=== PATIENT | male | born 1945 | race Hispanic/Latino ===

== ENCOUNTER 2019-05-21 13:47 | Outpatient (CLI) | payer MEDICARE, SELFPAY ==
--- NOTE | ~2019-05-21 | XR_ITS ---
EXAMINATION: XR chest 2V 05/21/2019 14:23 INDICATION: Cough and shortness of breath PROCEDURE: 2 View chest COMPARISON: No prior studies for comparison. FINDINGS: The lungs are clear. The cardiomediastinal silhouette is within normal limits. There are no pleural effusions. There is no pneumothorax suspected. IMPRESSION: 1: NO ACUTE CARDIOPULMONARY DISEASE. Reviewed, dictated and finalized at location B. E PROCESSOR
== END 2019-05-21 13:48 | disposition home or self-care (01) ==
LOC: ANHIMG 13:53
PROVIDERS: PCP Family Medicine; Visit Provider Family Medicine
DX: R05 Cough (principal)
CPT/HCPCS: 71046

== ENCOUNTER 2021-07-13 01:07 | Day surgery (SDC) | payer MEDICARE, SELFPAY ==
[2021-07-05 12:51] VITALS: BMI 30.2
[2021-07-13 09:05] LABS: Glucose Point of Care 161 mg/dl (65-105)
[2021-07-13 09:07] VITALS: BP 154/66; PULSE 76; RESP 18; TEMP 36.5; O2SAT 98
[2021-07-13] MEDS: LACTATED RINGERS 1,000 ML 150 ML IV CONT (09:10)
--- NOTE | 2021-07-13 09:30 | SUR.PREOP ---
Pt speaks very limited Romansh; knik language is Lao. Pt is unsure as to what home medications he takes. Pt's grandson, Adonis, reports pt takes something for blood pressure and cholesterol and medicine for diabetes , but is unsure exactly which medications. Neither pt or grandson has a list of pt's home medications/dosages/frequencies. Dr. Cook aware.
--- NOTE | 2021-07-13 09:48 | P.PNAN_ITS ---
Anes - Initial Pre Proc Eval Procedure: Operation Date: 07/13/21 10:00 Proposed Procedures p Screening Colonoscopy - Kayden Sequeira MD Date/Time: 07/13/21 09:48 Surgeon: Kayden Sequeira MD Pre Op Diagnosis: neoplasm screening Patient Data Age: 75 Gender: M Height: 1.63 m Weight: 78.4 kg Last Vital Signs Temp 97.7 F 07/13/21 09:07 Pulse 76 07/13/21 09:07 Resp 18 07/13/21 09:07 BP 154/66 H 07/13/21 09:07 Pulse Ox 98 07/13/21 09:07 Allergies Allergy/AdvReac Type Severity Reaction Status Date / Time No Known Allergies Allergy Verified 07/13/21 09:06 Laboratory Tests 07/13/21 09:02 POC Capillary Glucose 161 mg/dl H mg/dl (65-105) Patient hx anesthesia problems: none Family hx anesthesia problems: none Results Review: All pre-operative results and documents have been reviewed as part of the pre-operative evaluation. [facility] Social History Social History Smoking status: Former smoker Tobacco type: cigarettes Alcohol intake: current Alcohol use details: ocasionally Substance use: never Substance use type: does not use Living arrangements: with family Spiritual care concerns: No Anes - Eval Final PreProcedure Day of Procedure 07/13/21 09:48 Patient weight: obese Heart: regular rate and rhythm Lungs: clear to auscultation Airway: Mallampati scale class II Neurological: alert and oriented Last oral intake: >/= 8 hours ASA classification: III Emergent: no Anesthetic plan: proceed Anesthesia type and monitoring: general GIVS and standard monitoring Results Review: All pre-operative results and documents have been reviewed as part of the pre-operative evaluation. Informed Consent: The patient's anesthetic plan and its attendant risks and benefits were discussed with the patient/family/POA. Questions were solicited and answers provided to the satisfaction of the patient/family/POA.
--- NOTE | 2021-07-13 09:55 | PM.HPGS ---
History of Present Illness History of Present Illness Consent: Risks, benefits, and alternatives have been discussed and questions answered. Patient agrees to proceed with procedure. Chief complaint: neoplasm screening Narrative: Damien Ruff is a 75 year old male here for first screening colonoscopy Review of Systems Constitutional: Constitutional: Denies headache(s) and Denies weakness Eyes: Eyes: Denies blurry vision ENT: Reports Normal hearing present, Denies headache(s) and Denies neck pain Cardiovascular: Cardiovascular: Denies chest pain and Denies dyspnea Respiratory: Respiratory: Denies dyspnea Gastrointestinal: Gastrointestinal: Reports no additional gastrointestinal complaints Genitourinary: Genitourinary: Denies dysuria Musculoskeletal: Musculoskeletal: Denies neck pain Integumentary/Breasts: Skin/Breast: Denies dry skin Neurologic: Reports Normal hearing present, Denies headache(s) and Denies weakness Psychiatric: Psychiatric: Denies anxiety Endocrine: Endocrine: Denies change in body appearance Hematologic/Lymphatic: Hematologic/Lymphatic: Denies easy bleeding Allergic/Immunologic: Allergic/Immunologic: Denies urticaria PMFSH Past Medical History Medical History (Updated 07/13/21 @ 09:55 by Kayden Sequeira MD) Colon cancer screening Social History Social History Smoking status: Former smoker Tobacco type: cigarettes Alcohol intake: current Alcohol use details: ocasionally Substance use: never Substance use type: does not use Living arrangements: with family Spiritual care concerns: No Meds Home Medications and Allergies Allergies Allergy/AdvReac Type Severity Reaction Status Date / Time No Known Allergies Allergy Verified 07/13/21 09:06 Vital Signs Vital Signs - 24 hr 07/13/21 09:07 Temperature 97.7 F Pulse Rate 76 Respiratory Rate 18 Blood Pressure 154/66 H Pulse Oximetry 98 Exam Const: General: comfortable and no acute distress HENMT: General nose exam: Normal nares present Eyes: General: appearance normal, both eyes and all related structures Neck: Neck: no JVD Resp: Auscultation: clear to auscultation bilaterally Cardio: Rate: regular rate Rhythm: regular rhythm GI: Inspection: non-distended GI Palp: Yes Soft to palpation Skin: General skin exam: normal color Neuro: General: gait normal Speech: normal speech Extrem: General: normal to inspection Psych: Mental Status: mental status grossly normal Assessment and Plan Assessment and plan (1) Colon cancer screening: Code(s): Z12.11 - Encounter for screening for malignant neoplasm of colon Status: Acute Assessment and Plan: colonoscopy
[2021-07-13 10:30] VITALS: BP 105/62; PULSE 63; RESP 14; O2SAT 97
[2021-07-13 10:40] VITALS: BP 110/71; PULSE 61; RESP 12; O2SAT 97
[2021-07-13 10:50] VITALS: BP 123/74; PULSE 68; RESP 16; O2SAT 97
== END 2021-07-13 11:05 | disposition home or self-care (01) ==
PROVIDERS: PCP Family Medicine; Visit Provider Internal Medicine Gastroenterology
PROC: 0DJD8ZZ Inspection of Lower Intestinal Tract, Via Natural or Artificial Opening Endoscopic (ICD-10-PCS; CPT 45378; principal; 2021-07-13 10:00)
DX: Z12.11 Encounter for screening for malignant neoplasm of colon (principal); D12.0 Benign neoplasm of cecum; K64.8 Other hemorrhoids; Z87.891 Personal history of nicotine dependence; E66.9 Obesity, unspecified; Z68.29 Body mass index [BMI] 29.0-29.9, adult
CPT/HCPCS: 45385; 82948; 88305; J2704; J7120

== ENCOUNTER 2023-09-01 16:01 | Outpatient (CLI) | payer MEDICARE, SELFPAY ==
--- NOTE | ~2023-09-01 | XR_ITS ---
XR chest 2V Ordering provider: Donal Tong, FLEXIBLE MACHINING SYSTEM MACHINIST History: 77 years Male with . COUGH X 1 MONTH . Comparison: None. FINDINGS: MEDIASTINUM: The cardiac silhouette is not enlarged. Vague opacity in the left perihilar area. Three-month Follow-up advised LUNGS: No infiltrates, effusions or pneumothorax. Prominent markings in the left lower lobe area. Possible pleural thickening in the right lower lobe area which is slightly increased compared to pre vious study. Follow-up advised. OTHER: No free air under the diaphragm. IMPRESSION: Prominent markings in the left lower lobe unchanged. Vague opacity in the left perihilar area which may be atelectasis. Follow-up in 3 months advised. Possible thickening in the pleura in the right lower lobe area laterally. Follow-up advised. Reviewed, dictated and finalized at location A. IMPRESSION: Prominent markings in the left lower lobe unchanged. Vague opacity in the left perihilar area which may be atelectasis. Follow-up in 3 months advised. Possible thickening in the pleura in the right lower lobe area laterally. Follo w-up advised.
== END 2023-09-01 16:02 | disposition home or self-care (01) ==
LOC: ANHIMG 16:07
PROVIDERS: PCP Nurse Practitioner Family; Visit Provider Nurse Practitioner Family
DX: J98.4 Other disorders of lung (principal)
CPT/HCPCS: 71046

== ENCOUNTER 2024-01-30 14:21 | Outpatient (CLI) | payer MEDICARE, SELFPAY ==
--- NOTE | 2024-01-30 | ECG_ITS ---
Test Date: 2024-01-30 14:51:57 Measurements Intervals [place] Rate: 92 P: 63 DE: 186 QRS: 73 QRSD: 99 T: 28 QT: 331 QTc: 411 Interpretive Statements SINUS RHYTHM ST ELEVATION IN ANTERIOR LEADS- PROBABLY EARLY REPOLARIZATION INFERIOR INFARCT, AGE INDETERMINATE ABNORMAL ECG No previous ECG available for comparison Electronically Signed On 01-30-2024 14:53:32 COATING LINE WORKER by Davin Beaver D.O.
== END 2024-01-30 14:22 | disposition home or self-care (01) ==
LOC: ANHCARD 14:22
PROVIDERS: PCP Physician Assistant; Visit Provider Physician Assistant
DX: R94.31 Abnormal electrocardiogram [ECG] [EKG] (principal); R42 Dizziness and giddiness
CPT/HCPCS: 93005

== ENCOUNTER 2024-02-22 09:31 | Outpatient (CLI) | payer MEDICARE, SELFPAY ==
--- NOTE | ~2024-02-22 | US_ITS ---
EXAMINATION: US carotid duplex BI DATE: 02/22/2024 10:41 INDICATION: Dizziness and giddiness TECHNIQUE: Grayscale, color Doppler, and pulsed Doppler images of the cervical carotid arteries were obtained. The degree of vessel stenosis is placed in one of the following categories: normal, <50%, 5 0-69%, >=70% but less than near-occlusion, near-occlusion, or total occlusion. Note that percent sten osis relative to normal distal artery lumen diameter is indirectly measured from velocity measurement s as described by Chinedu, et al. Radiology 2003; 229:340-346. Notes: Normal: Peak systolic velocity <125 centimeters/sec and no plaque <50%. Peak systolic velocity <125 ( EDV <40; ICA/CCA PSV ratio <2.0; used these factors only a tandem lesions or low cardiac output or co ntralateral disease) 50-69 %: PSV 125-230 (EDV 40-100; ratio 2-4) >= 70% but less than near occlusion: PSV greater than 230 (EDV > 100; ratio> 4.0) Near Occlusion: PSV that is variable; markedly narrowed lumen Occlusion: Absent flow on color/spectral Doppler and no lumen on snowden scale. COMPARISON: None. FINDINGS: RIGHT: The right common carotid artery (CCA) peak systolic velocity (PSV) is 93 cm/s. The right internal car otid artery (ICA) PSV is 126 cm/s. The right ICA end-diastolic velocity (EDV) is 42 cm/s. The right I CA/CCA PSV ratio is 1.4. The external carotid artery (ECA) PSV is 86 cm/s. There is antegrade flow in the right vertebral artery. LEFT: The left CCA PSV is 97 cm/s. The left ICA PSV is 89 cm/s. The left ICA EDV is 25 cm/s. The left ICA/C CA PSV ratio is 0.9. The ECA PSV is 88 cm/s. There is antegrade flow in the left vertebral artery. IMPRESSION: 1. 50-69% stenosis in the right internal carotid artery by sonographic criteria. 2. Less than 50% stenosis in the left internal carotid artery by sonographic criteria. Reviewed, dictated and finalized at location B. UMER SAFETY INSPECTOR IMPRESSION: 1. 50-69% stenosis in the right internal carotid artery by sonographic criteria . 2. Less than 50% stenosis in the left internal carotid artery by sonographic cr iteria.
== END 2024-02-22 09:32 | disposition home or self-care (01) ==
PROVIDERS: PCP Physician Assistant; Visit Provider Physician Assistant
DX: I65.23 Occlusion and stenosis of bilateral carotid arteries (principal)
CPT/HCPCS: 93880

== ENCOUNTER 2024-06-11 13:23 | Emergency (ER) | payer MEDICARE, SELFPAY ==
[2024-06-11] VITALS (11 sets, daily range): BP systolic 129–157; BP diastolic 59–81; PULSE 96–110; RESP 11–26; TEMP 36.1; O2SAT 94–98
--- NOTE | ~2024-06-11 | CT_ITS ---
EXAMINATION: CTA brain carotid DATE: 06/11/2024 19:11 INDICATION: persistent vertigo TECHNIQUE: Computed tomographic angiography (CTA) of the head and neck was performed with 100 mL Omni paque-350 intravenous contrast. Automated exposure control and iterative reconstruction technique wer e employed. The dose-length product was 1016.29 mGy-cm. Maximum intensity projection and volume rende red 3D-reconstructions were created by the technologist on a separate workstation. COMPARISON: CT brain, same date. FINDINGS: CTA HEAD: No large vessel occlusion, aneurysm, high flow vascular malformation, nidus or extravasation. Hypopla stic distal intradural right vertebral artery. CTA NECK: Aortic arch and proximal great vessels: Normal arch anatomy. Atherosclerotic calcifications at the vi sualized aortic arch and proximal great vessels. Right common carotid, carotid bifurcation, and internal carotid artery: Calcified atherosclerotic allegra que at the carotid bifurcation.There is 28% stenosis of the proximal right internal carotid artery re lative to normal distal artery lumen diameter (NASCET criteria). Left common carotid, carotid bifurcation, and internal carotid artery: Minimal calcified and noncalci fied plaque.There is 0% stenosis of the proximal left internal carotid artery relative to normal dist al artery lumen diameter (NASCET criteria). Vertebral arteries: No significant plaque or stenosis. Left vertebral artery is dominant. Other findings: 2.4 cm solid and cystic appearing left thyroid nodule. Degenerative changes in the ce rvical spine.. IMPRESSION: No large vessel intracranial occlusion, high-grade intracranial stenosis, or aneurysm. No carotid or vertebral artery occlusion, dissection, or significant stenosis. 2.4 cm left thyroid nodule, recommend outpatient thyroid ultrasound for further catheterization. Reviewed, dictated and finalized at location K. IMPRESSION: No large vessel intracranial occlusion, high-grade intracranial stenosis, or an eurysm. No carotid or vertebral artery occlusion, dissection, or significant stenosis. 2.4 cm left thyroid nodule, recommend outpatient thyroid ultrasound for further catheterization.
--- NOTE | ~2024-06-11 | CT_ITS ---
EXAMINATION: CT brain wo con DATE: 06/11/2024 14:02 INDICATION: Altered mental status and dizziness TECHNIQUE: Computed tomography (CT) of the head was performed without intravenous contrast. Sagittal and coronal reconstructions were performed. The dose Jean head The dose-length product was 605.33 mGy-cm. COMPARISON: None FINDINGS: No acute intracranial hemorrhage, acute infarction or abnormal extra axial fluid collection. Symmetri c prominence of the sulci consistent with mild age-appropriate diffuse cerebral volume loss. Ventric les are normal and symmetric. No mass/mass effect. Changes of bilateral intraocular lens replacement. The orbits and mastoid air cells are normal. The right maxillary sinus is slightly smaller than the left with mild mucosal thickening. IMPRESSION: 1. Normal aging brain. No acute intracranial process. Reviewed, dictated and finalized at location B.
--- NOTE | 2024-06-11 13:39 | ECG_ITS ---
Test Date: 2024-06-11 14:52:53 Measurements Intervals [place] Rate: 100 P: 38 GA: 156 QRS: 61 QRSD: 108 T: -18 QT: 355 QTc: 460 Interpretive Statements SINUS TACHYCARDIA POSSIBLE INFERIOR MYOCARDIAL INFARCTION , OF INDETERMINATE AGE [30 ms Q WAVE IN II/aVF] Compared to ECG 01/30/2024 14:51:57 NO SIGNIFICANT CHANGES Electronically Signed On 06-11-2024 16:49:24 CDT by Ever Veliz M.D.
[2024-06-11 14:17] LABS: Basophils Percent Auto 0.5 % (0.2-1.2); Eosinophils Absolute Auto 0.1 K/mm3 (0-0.3); Eosinophils Percent Auto 1.8 % (0-4.4); Hematocrit 36.3 % (42.0-52.0); Hemoglobin 11.9 g/dL (14.0-18.0); Immature Granulocyte Absolute 0.03 K/mm3 (0.00-0.031); Immature Granulocyte Percent A 0.5 % (0-0.5); Lymphocytes Absolute Auto 1.55 K/mm3 (0.9-3.2); Lymphocytes Percent Auto 25.3 % (18.3-44.2); Mean Corpuscular HGB Conc 32.8 g/dl (32-36); Mean Corpuscular Hemoglobin 28.7 pg (26-34); Mean Corpuscular Volume 87.7 fl (80-100); Mean Platelet Volume 9.8 fl (7.4-10.4); Monocytes Absolute Auto 0.4 K/mm3 (0.1-0.6); Monocytes Percent Auto 6.7 % (2.6-8.5); Neutrophils Percent Auto 65.2 % (45.5-73.1); Platelet Count Result 218 k/mm3 (150-375); Red Blood Count 4.14 M/mm3 (4.6-6.20); Red Cell Distribution Width 12.9 % (11.5-14.5); White Blood Count 6.1 K/mm3 (4.5-10.0)
[2024-06-11 14:24] LABS: Alanine Aminotransferase 17 U/L (6-50); Albumin Level 4.2 g/dL (3.5-5.1); Alkaline Phosphatase 66 U/L (38-126); Anion Gap 11 mmol/L (4-12); Aspartate Amino Transferase 22 U/L (17-59); Bilirubin,Total 0.4 mg/dL (0.2-1.3); Blood Urea Nitrogen 28 mg/dL (9-20); Calcium 9.6 mg/dL (8.4-10.2); Carbon Dioxide 22 mmol/L (22-30); Chloride 100 mmol/L (98-107); Estimated CRCL calculation 57 ml/min; Estimated Glomerular Filt Rate > 60; Glucose 217 mg/dL (65-110); Potassium 3.8 mmol/L (3.4-5.0); Sodium 133 mmol/L (137-145)
[2024-06-11 14:28] LABS: Prothrombin Time 13.5 Seconds (11.1-14.7)
[2024-06-11 14:29] LABS: Partial Thromboplastin Time 27.9 Seconds (22.3-36.8)
[2024-06-11 14:37] LABS: Troponin I < 0.012 ng/mL (0.000-0.034)
--- NOTE | 2024-06-11 15:04 | ED_ITS ---
HPI - Dizziness General Chief Complaint: Dizziness <Karyn Calderon SALES SUPPORT SPECIALIST - Last Filed: 06/11/24 15:07> Stated Complaint: Dizziness, BGL 222 <Karyn Calderon APRN - Last Filed: 06/11/24 15:07> Time Seen by Provider: 06/11/24 14:00 <Karyn Calderon APRN - Last Filed: 06/11/24 15:07> Focused HPI: Patient is a 78-year-old male who presents to the ER with dizziness and vertigo. He reports he is a type 1 diabetic and this morning his blood sugar was low. Patient's family was worried about his blood sugars so they called EMS. EMS reports patient's blood sugar was 222 during transport, and his blood pressure was 160/70. Patient received a small bolus of IV fluid in the ambulance during transport. He denies any chest pain, shortness of breath, back pain, recent fevers. GENERAL: Well-appearing, well-nourished, and in mild distress d/t dizziness. HEAD: Normocephalic, atraumatic. CHEST: Clear to auscultation. ?No respiratory distress. HEART: Regular rate and rhythm.? NEURO: ?Alert and oriented x3. Patient screened in triage and initial orders placed.? ?Additional care and disposition to be based upon?diagnostic testing and treatment. <Karyn Calderon APRN - Last Filed: 06/11/24 15:07> Focused HPI: Patient is a 78-year-old male who presents to the ER with dizziness and vertigo. He reports he is a type 2 diabetic and not on any insulin and this morning his blood sugar was low. Patient's family was worried about his blood sugars so they called EMS. EMS reports patient's blood sugar was 222 during transport, and his blood pressure was 160/70. Patient received a small bolus of IV fluid in the ambulance during transport. He denies any chest pain, shortness of breath, back pain, recent fevers. Patient states that he has been feeling dizzy for several days intermittent with profound nauseousness. He states that sometimes he gets so dizzy that he cannot walk. No history of vertigo, no trauma, was otherwise in his normal state of health. No headache or vision changes. No neck pain. No shortness of breath, chest pain, abdominal pain or back pain. No history of stroke or TIA. GENERAL: Well-appearing, well-nourished, and in mild distress d/t dizziness. HEAD: Normocephalic, atraumatic. CHEST: Clear to auscultation. ?No respiratory distress. HEART: Regular rate and rhythm.? NEURO: ?Alert and oriented x3. Patient screened in triage and initial orders placed.? ?Additional care and disposition to be based upon?diagnostic testing and treatment. <Thong Pierre MD - Last Filed: 06/11/24 19:03> History of Present Illness HPI Narrative: Agree with the HPI above. Patient is primarily [place] speaking requiring interpretive services. <Thong Pierre MD - Last Filed: 06/11/24 19:03> Related Data Allergies/Adverse Reactions: Allergies Allergy/AdvReac Type Severity Reaction Status Date / Time No Known Allergies Allergy Verified 06/11/24 14:52 <Karyn Calderon APRN - Last Filed: 06/11/24 15:07> Review of Systems 2 Review of Systems: As reviewed above in HPI <Thong Pierre MD - Last Filed: 06/11/24 19:03> PMFSH Past Medical History Medical History: Medical History Colon cancer screening <Karyn Calderon APRN - Last Filed: 06/11/24 15:07> Social History Social History: Social History Smoking status: Former smoker Tobacco type: cigarettes Alcohol intake: current Alcohol use details: ocasionally Substance use: never Substance use type: does not use Living arrangements: with family Spiritual care concerns: No <Karyn Calderon APRN - Last Filed: 06/11/24 15:07> Exam 2 Narrative: GENERAL: [Well-appearing, well-nourished, and in no acute distress.] HEAD: [Normocephalic, atraumatic.] EYES: Pupils are equal and reactive, extraocular movements are intact, prominent rightward beating nystagmus horizontally, no vertical or torsion nystagmus noted. ENT: Nares clear, no rhinorrhea or epistaxis. Mucous membranes moist. NECK: Supple. CHEST: [Clear to auscultation. No respiratory distress.] HEART: [Regular rate and rhythm]. No murmur heard. [Normal peripheral pulses.] ABDOMEN: [Soft, nondistended], [nontender], [No rigidity or guarding] EXTREMITIES: Normal range of motion. [No edema.] SKIN: Warm, dry, no rash. NEURO: [No focal deficits]. Alert and oriented [x3.] Full strength and sensation throughout both arms and legs. No ataxia in the arms or legs, no facial asymmetry. Prominent horizontal beating nystagmus on ocular examination. No visual field deficits. When attempting to ambulate he has a broad-based gait and unsteady on his feet, positive Romberg. PSYCH: [Normal mood and affect.] <Thong Pierre MD - Last Filed: 06/11/24 19:03> Course Course Emergency Course: Patient signed out to me pending CTA which is unremarkable, without evidence of stenosis or other issues. Upon reassessment patient had reported to me that he was still feeling dizzy. Promethazine ordered to suppress the vestibular end-organ receptors and inhibit activation of the vagal response. Orthostatic vital signs are performed and reviewed and acceptable. Patient does ambulate to the bathroom. The nurse does note that he demonstrated generally good gait stability although had a moment where he nearly faltered. She thought this might be due to the fact that he has been in the emergency department and on a stretcher for 8 hours. Patient is reassessed at bedside at approximately 10:00 p.m.. He states he is feeling markedly better without any dizziness anymore. He states he believes he was experiencing a side effect of the Phenergan that was given which was responsible for how he felt when ambulating to the bathroom (which is very reasonable explanation) but otherwise states that he was not symptomatically dizzy during it. He also thought it might be due to a degree of hunger as he hasn't eaten anything and is a diabetic. Discussed the possibility of admitting for MRI (although with full disclosure that neurology not available today or tomorrow) but patient and family feel very comfortable with discharge and following up with PCP Natalie Chacko in the outpatient setting. He also has an upcoming cardiology appointment on the and wanted to know if it was okay to keep that. I assured him it was. Patient and son feel very comfortable with discharge in are amenable with the plan. Son served as historic interpreter and was very comfortable with this role in stated that his father was a bit nervous to talk to an historic interpreter. Patient discharged with PO Phernergan as this medication seemed to work better than meclizine or Valium. Hypertension has resolved (removed from discharge problem list). <Paris Gomez MD - Last Filed: 06/11/24 22:11> Vital Signs Vital signs: Vital Signs Temperature 97.0 F L 06/11/24 13:33 Pulse Rate 96 06/11/24 13:33 Respiratory Rate 18 06/11/24 13:33 Blood Pressure 156/59 H 06/11/24 13:33 Pulse Oximetry 97 06/11/24 13:33 Oxygen Delivery Room Air 06/11/24 13:33 Temperature 97.0 F L 06/11/24 13:33 Pulse Rate 103 H 06/11/24 21:10 Respiratory Rate 11 L 06/11/24 18:46 Blood Pressure 137/69 06/11/24 21:10 Pulse Oximetry 96 06/11/24 18:46 Oxygen Delivery Room Air 06/11/24 13:33 <Karyn Calderon, TERESA - Last Filed: 06/11/24 15:07> Vital Signs Temperature 97.0 F L 06/11/24 13:33 Pulse Rate 96 06/11/24 13:33 Respiratory Rate 18 06/11/24 13:33 Blood Pressure 156/59 H 06/11/24 13:33 Pulse Oximetry 97 06/11/24 13:33 Oxygen Delivery Room Air 06/11/24 13:33 Temperature 97.0 F L 06/11/24 13:33 Pulse Rate 103 H 06/11/24 21:10 Respiratory Rate 11 L 06/11/24 18:46 Blood Pressure 137/69 06/11/24 21:10 Pulse Oximetry 96 06/11/24 18:46 Oxygen Delivery Room Air 06/11/24 13:33 <Thong Pierre MD - Last Filed: 06/11/24 19:03> Vital Signs Temperature 97.0 F L 06/11/24 13:33 Pulse Rate 96 06/11/24 13:33 Respiratory Rate 18 06/11/24 13:33 Blood Pressure 156/59 H 06/11/24 13:33 Pulse Oximetry 97 06/11/24 13:33 Oxygen Delivery Room Air 06/11/24 13:33 Temperature 97.0 F L 06/11/24 13:33 Pulse Rate 103 H 06/11/24 21:10 Respiratory Rate 11 L 06/11/24 18:46 Blood Pressure 137/69 06/11/24 21:10 Pulse Oximetry 96 06/11/24 18:46 Oxygen Delivery Room Air 06/11/24 13:33 <Paris Gomez MD - Last Filed: 06/11/24 22:11> MDM - Dizziness MDM Narrative Medical decision making narrative: 78-year-old male with a history of type 2 diabetes, hypertension. He presents to the emergency department today accompanied by his son. Patient is primarily [place]-speaking, requiring interpretive services. Patient himself states that he has had several days of profound vertiginous symptoms and dizziness there are spontaneous. Today he got so profoundly dizzy with vertiginous complaints such as nausea vomiting with room spinning sensation that he could not walk and he called his son to assist. EMS was called to provide transportation. Patient does have prominent horizontal beating nystagmus on examination, positive Romberg sign and difficulty ambulating but no other neurological function complaints or signs on examination. No visual field deficits, no strength deficits, normal symmetric strength and sensation throughout both arms and legs. No ataxia in the arms or legs. No facial asymmetry. Vital signs show he is hypertensive mildly but no other significant derangements. No hypoxia or fever. Considerations presently are for peripheral vertigo given the profound vertiginous complaints with nausea and vomiting versus central etiology which is less likely but given his age and risk factors such as type 2 diabetes and hypertension. TIA versus stroke versus occlusive event felt less likely. Could be complication of his diabetes such as hyper or hypoglycemia. Workup was ordered in triage including CBC, CMP, PT, PTT, beta hydroxybutyrate, EKG, CT scan without contrast. He was given a fluid bolus and a trial of meclizine. Workup shows no significant leukocytosis, anemia of 11.9 with no baseline to compare to. Normal platelet count. Normal coagulation panel. Electrolytes within normal limits, normal creatinine, slightly hyperglycemic but no anion gap or acidosis. Very mildly elevated beta hydroxybutyrate but not significant. Negative troponin. CT scan shows normal aging brain without any acute process. EKG obtained shows sinus rhythm without any ST segment elevations or depressions. No signs of ectopy. No significant change compared to prior EKG. Patient was re-evaluated after the meclizine and fluids. He had no interval change in his nystagmus or vertiginous symptoms. At this time second-line therapy including Valium 2.5 mg IV was given and a CT angiography of his head and neck was ordered for further delineation of potential causes. Patient signed out at shift change to oncoming physician Dr. Gomez at 7:[address] angiography and re-evaluation. Patient likely will require admission if he has any persistent symptoms or acute findings. <Thong Pierre MD - Last Filed: 06/11/24 19:03> Lab Data Attestation: I reviewed the patient's lab results. <Thong Pierre MD - Last Filed: 06/11/24 19:03> Result diagrams: 06/11/24 14:06 06/11/24 14:06 <Karyn Calderon APRN - Last Filed: 06/11/24 15:07> Labs: Lab Results 06/11/24 Range/Units 14:06 WBC 6.1 (4.5-10.0) K/mm3 RBC 4.14 L (4.6-6.20) M/mm3 Hgb 11.9 L (14.0-18.0) g/dL Hct 36.3 L (42.0-52.0) % MCV 87.7 (80-100) fl MCH 28.7 (26-34) pg MCHC 32.8 (32-36) g/dl RDW 12.9 (11.5-14.5) % Plt Count 218 (150-375) k/mm3 MPV 9.8 (7.4-10.4) fl Immature Gran % (Auto) 0.5 (0-0.5) % Neut % (Auto) 65.2 (45.5-73.1) % Lymph % (Auto) 25.3 (18.3-44.2) % Hardeman % (Auto) 6.7 (2.6-8.5) % Eos % (Auto) 1.8 (0-4.4) % Baso % (Auto) 0.5 (0.2-1.2) % Lymph # (Auto) 1.55 (0.9-3.2) K/mm3 Hardeman # (Auto) 0.4 (0.1-0.6) K/mm3 Eos # (Auto) 0.1 (0-0.3) K/mm3 Baso # (Auto) 0.0 (0.0-0.1) K/mm3 Abs Immat Gran (auto) 0.03 (0.00-0.031) K/mm3 Absolute Neuts (auto) 4.0 (1.3-6.7) K/mm3 Absolute Nucleated RBC 0.000 (0.0-0.012) K/mm3 Nucleated RBC % 0.0 (0.0-0.2) % PT 13.5 (11.1-14.7) Seconds INR 1.0 APTT 27.9 (22.3-36.8) Seconds Sodium 133 L (137-145) mmol/L Potassium 3.8 (3.4-5.0) mmol/L Chloride 100 (98-107) mmol/L Carbon Dioxide 22 (22-30) mmol/L Anion Gap 11 (4-12) mmol/L BUN 28 H (9-20) mg/dL Creatinine 0.90 (0.7-1.3) mg/dL Estim Creat Clear Calc 57 ml/min Estimated GFR > 60 (59 - ) Glucose 217 H (65-110) mg/dL Calcium 9.6 (8.4-10.2) mg/dL Total Bilirubin 0.4 (0.2-1.3) mg/dL AST 22 (17-59) U/L ALT 17 (6-50) U/L Alkaline Phosphatase 66 (38-126) U/L Troponin I < 0.012 (0.000-0.034) ng/mL Total Protein 7.0 (6.3-8.2) g/dL Albumin 4.2 (3.5-5.1) g/dL Beta-Hydroxybutyrate/Acetoacetate 0.70 H (0.02-0.27) mmol/L <Karyn L. [place], SALES SUPPORT SPECIALIST - Last Filed: 06/11/24 15:07> Lab Results 06/11/24 Range/Units 14:06 WBC 6.1 (4.5-10.0) K/mm3 RBC 4.14 L (4.6-6.20) M/mm3 Hgb 11.9 L (14.0-18.0) g/dL Hct 36.3 L (42.0-52.0) % MCV 87.7 (80-100) fl MCH 28.7 (26-34) pg MCHC 32.8 (32-36) g/dl RDW 12.9 (11.5-14.5) % Plt Count 218 (150-375) k/mm3 MPV 9.8 (7.4-10.4) fl Immature Gran % (Auto) 0.5 (0-0.5) % Neut % (Auto) 65.2 (45.5-73.1) % Lymph % (Auto) 25.3 (18.3-44.2) % Hardeman % (Auto) 6.7 (2.6-8.5) % Eos % (Auto) 1.8 (0-4.4) % Baso % (Auto) 0.5 (0.2-1.2) % Lymph # (Auto) 1.55 (0.9-3.2) K/mm3 Hardeman # (Auto) 0.4 (0.1-0.6) K/mm3 Eos # (Auto) 0.1 (0-0.3) K/mm3 Baso # (Auto) 0.0 (0.0-0.1) K/mm3 Abs Immat Gran (auto) 0.03 (0.00-0.031) K/mm3 Absolute Neuts (auto) 4.0 (1.3-6.7) K/mm3 Absolute Nucleated RBC 0.000 (0.0-0.012) K/mm3 Nucleated RBC % 0.0 (0.0-0.2) % PT 13.5 (11.1-14.7) Seconds INR 1.0 APTT 27.9 (22.3-36.8) Seconds Sodium 133 L (137-145) mmol/L Potassium 3.8 (3.4-5.0) mmol/L Chloride 100 (98-107) mmol/L Carbon Dioxide 22 (22-30) mmol/L Anion Gap 11 (4-12) mmol/L BUN 28 H (9-20) mg/dL Creatinine 0.90 (0.7-1.3) mg/dL Estim Creat Clear Calc 57 ml/min Estimated GFR > 60 (59 - ) Glucose 217 H (65-110) mg/dL Calcium 9.6 (8.4-10.2) mg/dL Total Bilirubin 0.4 (0.2-1.3) mg/dL AST 22 (17-59) U/L ALT 17 (6-50) U/L Alkaline Phosphatase 66 (38-126) U/L Troponin I < 0.012 (0.000-0.034) ng/mL Total Protein 7.0 (6.3-8.2) g/dL Albumin 4.2 (3.5-5.1) g/dL Beta-Hydroxybutyrate/Acetoacetate 0.70 H (0.02-0.27) mmol/L <Thong Pierre MD - Last Filed: 06/11/24 19:03> Lab Results 06/11/24 Range/Units 14:06 WBC 6.1 (4.5-10.0) K/mm3 RBC 4.14 L (4.6-6.20) M/mm3 Hgb 11.9 L (14.0-18.0) g/dL Hct 36.3 L (42.0-52.0) % MCV 87.7 (80-100) fl MCH 28.7 (26-34) pg MCHC 32.8 (32-36) g/dl RDW 12.9 (11.5-14.5) % Plt Count 218 (150-375) k/mm3 MPV 9.8 (7.4-10.4) fl Immature Gran % (Auto) 0.5 (0-0.5) % Neut % (Auto) 65.2 (45.5-73.1) % Lymph % (Auto) 25.3 (18.3-44.2) % Hardeman % (Auto) 6.7 (2.6-8.5) % Eos % (Auto) 1.8 (0-4.4) % Baso % (Auto) 0.5 (0.2-1.2) % Lymph # (Auto) 1.55 (0.9-3.2) K/mm3 Hardeman # (Auto) 0.4 (0.1-0.6) K/mm3 Eos # (Auto) 0.1 (0-0.3) K/mm3 Baso # (Auto) 0.0 (0.0-0.1) K/mm3 Abs Immat Gran (auto) 0.03 (0.00-0.031) K/mm3 Absolute Neuts (auto) 4.0 (1.3-6.7) K/mm3 Absolute Nucleated RBC 0.000 (0.0-0.012) K/mm3 Nucleated RBC % 0.0 (0.0-0.2) % PT 13.5 (11.1-14.7) Seconds INR 1.0 APTT 27.9 (22.3-36.8) Seconds Sodium 133 L (137-145) mmol/L Potassium 3.8 (3.4-5.0) mmol/L Chloride 100 (98-107) mmol/L Carbon Dioxide 22 (22-30) mmol/L Anion Gap 11 (4-12) mmol/L BUN 28 H (9-20) mg/dL Creatinine 0.90 (0.7-1.3) mg/dL Estim Creat Clear Calc 57 ml/min Estimated GFR > 60 (59 - ) Glucose 217 H (65-110) mg/dL Calcium 9.6 (8.4-10.2) mg/dL Total Bilirubin 0.4 (0.2-1.3) mg/dL AST 22 (17-59) U/L ALT 17 (6-50) U/L Alkaline Phosphatase 66 (38-126) U/L Troponin I < 0.012 (0.000-0.034) ng/mL Total Protein 7.0 (6.3-8.2) g/dL Albumin 4.2 (3.5-5.1) g/dL Beta-Hydroxybutyrate/Acetoacetate 0.70 H (0.02-0.27) mmol/L <Paris Gomez MD - Last Filed: 06/11/24 22:11> Imaging Data Attestation: I personally reviewed and interpreted this imaging study as follows: < Thong Pierre MD - Last Filed: 06/11/24 19:03> My impression: Impressions Head CT 06/11/24 14:09 IMPRESSION: 1. Normal aging brain. No acute intracranial process. <Thong Pierre MD - Last Filed: 06/11/24 19:03> Discharge Plan Discharge Clinical Impression: Vertigo, Hyperglycemia due to type 2 diabetes mellitus <Karyn Calderon APRN - Last Filed: 06/11/24 15:07> Patient Disposition: Home, Self-Care <Karyn Calderon APRN - Last Filed: 06/11/24 15:07> Condition: Stable <Karyn Calderon APRN - Last Filed: 06/11/24 15:07> Instructions: Antibiotic Form, Vertigo (ED), Diabetic Hyperglycemia (ED) <Karyn Calderon APRN - Last Filed: 06/11/24 15:07> Additional Instructions: Follow-up with your primary care provider. As we discussed, your workup was reassuring, including head CT and CTA brain/neck which was without stenosis, aneurysm, etc. You can continue to trial the medication prescribed since it was this medication that seemed to work in the ED. return to the emergency department with any new/worsening/unmanaged symptoms. It is safe and even advised to keep your upcoming appointment with Cardiology this week. <Karyn Calderon APRN - Last Filed: 06/11/24 15:07> Patient Language: [place] <Karyn Calderon APRN - Last Filed: 06/11/24 15:07> Prescriptions: New promethazine 25 mg tablet 25 mg PO TID PRN (Reason: vertigo/dizziness) Qty: 14 0RF <Karyn Calderon APRN - Last Filed: 06/11/24 15:07> Follow-up/Referrals: Ricco,JOSÉ MANUEL Robles [Primary Care Provider] - <Karyn Calderon APRN - Last Filed: 06/11/24 15:07> Time of Disposition: 22:10 <Karyn Calderon APRN - Last Filed: 06/11/24 15:07> 22:10 <Thong Pierre MD - Last Filed: 06/11/24 19:03> 22:10 <Paris Gomez MD - Last Filed: 06/11/24 22:11>
--- OUTSIDE RECORDS SUMMARY | 2024-06-11 15:34 | XMS_ITS | Data Portability ---
Author Organization [facility] CHUYRafal Address [address] [place] [address] Care Team Providers Care Auto Body Repair Technician Name Role Phone FREDDY BEE Primary Care Provider Assessment Encounter Date Assessment Date Assessment LastModified by Organization Details LastModified Time 11/06/2023 11/06/2023 colon gateway 2 years ago Not available 11/08/2023 14:45:31 01/04/2024 01/04/2024 colon gateway 2 years ago Not available 01/04/2024 16:52:42 Plan of Treatment Reminders Order Date Submit Date Provider Last Modified By Organization Details Last Modified Time Details Appointments None recorded. Lab CMP, serum or plasma 2024 025 AILEEN [facility], [address], [place], [address], 5 10:14:10 microalbumi n/creatinin e, mass ratio, urine 2024 025 AILEEN [facility], [address], [place], [address], 5 10:14:09 HbA1c (hemoglobin A1c), blood 2024 025 AILEEN [facility], [address], [place], [address], 5 10:14:11 HbA1c (hemoglobin A1c), blood 2023 024 AILEEN In-Office Order, Internal Use Only DO Not Attach Compendium DO Not Attach Compendium, Do Not Delete/merge, [id number] 4 16:53:13 glucose, fingerstick , blood 2023 024 AILEEN In-Office Order, Internal Use Only DO Not Attach Compendium DO Not Attach Compendium, Do Not Delete/merge, [id number] 16:53:24 CMP, serum or plasma 2023 024 AILEEN Adan, [address], [place], [address], 4 11:17:23 vitamin B12 + folate, serum or blood 2023 024 AILEEN Adan, [address], [place], [address], 4 11:17:26 TSH, ultra-sensi tive, serum 2023 AILEEN Adan, [address], [place], [address], 4 11:17:25 iron + total iron-bindin g capacity (TIBC), serum 2023 024 AILEEN Adan, [address], [place], [address], 4 11:17:27 CMP, serum or plasma 2023 024 AILEEN Adan, [address], [place], [address], 4 13:13:22 albumin/cre atinine, mass ratio, urine 2023 024 AILEEN Adan, [address], [place], [address], 4 13:13:20 lipid panel, serum 2023 024 AILEEN Adan, [address], [place], [address], 4 13:13:21 HbA1c (hemoglobin A1c), blood 2023 024 [email or web address] In-Office Order, Internal Use Only DO Not Attach Compendium DO Not Attach Compendium, Do Not Delete/merge, [id number] 4 14:40:52 PSA, total, serum or plasma 2023 024 MURCHISON [facility], [address], [place], [address], 4 13:13:22 Referral nephrologis t referral 2024 025 [email or web address] Kayleigh Garcia MD, [address] [facility], [address], [place], [address], 5 08:12:46 cardiologis t referral 2024 025 [email or web address] Davin Beaver DO, [address] [facility] [address], [address], [place], [address], 5 08:12:46 vascular surgeon referral 2024 025 Cuco Yoon MD, [address] 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 Surgeries None recorded. Imaging None recorded. Medication Orders glimepiride 4 mg tablet 2023 024 [facility], [address] [facility], [place], [address], 4 16:07:28 lisinopril 10 mg-hydrochl orothiazide 12.5 mg tablet 2023 024 [facility] [address], [address] [place] [address], [address], 4 16:07:29 Jardiance 25 mg tablet [address], [address] [place] [address], [address], 5 16:53:44 OneTouch Verio test strips 2023 024 [facility] [address], [address] [place] [address], [address], 4 08:10:00 Jardiance 25 mg tablet [address], [address] [place] [address], [address], 5 16:53:44 OneTouch Verio test strips 2023 024 [facility] [address], [address] [place] [address], [address], 15:15:35 Patient TargetsNo targets recorded. Patient Instructions Encounter Date Encounter Id Patient Instructions Last Modified By Organization Details Last Modified Time 01/04/2024 [id number] A healthy lifestyle: care instructions [facility] Not available 01/04/2024 16:51:36 01/29/2024 [id number] rhythm strip, EKG* AILEEN Not available 01/31/2024 10:49:42 Reason for Referral Orthopedic Surgeon Referral for Tenosynovitis of right radial styloid b/l tenosynovitishe works with his hands Referring Physician: Freddy Bee, Disintegrator Feeder, Encounter Date: 11/06/2023 Supervisor Carpenters Referral for Ch ronic kidney disease Referring Physician: Freddy Bee Disintegrator Feeder, Encounter Date: 05/06/2024 Vascular Surgeon Referral fo r Carotid artery stenosis Referring Physician: Freddy Bee Disintegrator Feeder, Encounter Date: 05/06/2024 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 Commen t A laven lianet top tube was recei michael with no test indic ated Not Available [facility] ([facility]) [address] [facility], [place], [address], 11/08/2023 10:15:51 11/06/19 24 11/08/2023 NO TEST INDIC ATED dear doctor, Usha t The requi sitio n we recei michael for the above patie nt has no test indic ated on the reque st form for one or more of the speci mens submi tted. [place] at[place] s requi res a writt en and harvey d reque st be forwa rded to the testi ng labor atory follo wing the verba l order of a labor atory test. Date: ___ ICD-9 /10 Diagn osis Code( s):__ _ Physi ramy or Autho rized Ronald davis: Your signa ture confi guera your order of the test( s) liste d Requi red test name( s):__ _ Requi red test numbe r(s): _ Pleas e provi de reque sted infor josephine campos and fax to [phone] to exped geoff manzano. Not Available [facility] ([facility]) [address] [place], [address], 11/08/2023 10:15:51 11/06/19 24 11/08/2023 ALBUM IN/CR EATIN INE RATIO ,URIN E creatinine, urine 105.0 mg/dL notest ab. Not Available [facility] ([facility]) [address] [place], [address], 11/08/2023 13:13:20 11/06/19 24 11/08/2023 ALBUM IN/CR EATIN INE RATIO ,URIN E albumin, urine 143.6 ug/mL notest ab. Not Available [facility] ([facility]) [address] [place], [address], 11/08/2023 13:13:20 11/06/19 24 11/08/2023 ALBUM IN/CR EATIN INE RATIO ,URIN E alb/creat ratio 137 mg/g_ creat 0-29 above high normal Betzy l: 0 - 29 Moder ately incre ased: 30 - 300 Sever jillian incre ased: >300 Not Available [facility] ([facility]) [address] [place], [address], 11/08/2023 13:13:20 11/06/19 24 11/07/2023 LIPID PANEL cholesterol, total 174 mg/dL 100-19 9 Not Available [facility] ([facility]) [address] [place], [address], 11/08/2023 13:13:21 11/06/19 24 11/07/2023 LIPID PANEL triglyceride s 187 mg/dL 0-149 above high normal Not Available [facility] ([facility]) [address] [place], [address], 11/08/2023 13:13:21 11/06/19 24 11/07/2023 LIPID PANEL HDL cholesterol 39 mg/dL >39 below low normal Not Available [facility] ([facility]) [address] [place], [address], 11/08/2023 13:13:21 11/06/19 24 11/07/2023 LIPID PANEL VLDL cholesterol nir 33 mg/dL 5-40 Not Available [facility] ([facility]) [address] [place], [address], 11/08/2023 13:13:21 11/06/19 24 11/07/2023 LIPID PANEL LDL chol calc ([facility]) 102 mg/dL 0-99 above high normal Not Available [facility] ([facility]) [address] [place], [address], 11/08/2023 13:13:21 11/06/19 24 11/07/2023 COMP. METAB OLIC PANEL (14) glucose 217 mg/dL 70-99 above high normal Not Available [facility] ([facility]) [address] [place], [address], 11/08/2023 13:13:22 11/06/19 24 11/07/2023 COMP. METAB OLIC PANEL (14) BUN 18 mg/dL 8-27 Not Available [facility] ([facility]) [address] [place], [address], 11/08/2023 13:13:22 08/19/20 24 11/07/2023 COMP. METAB OLIC PANEL (14) creatinine 1.08 mg/dL 0.76-1 .27 Not Available [facility] ([facility]) [address] [facility], [place], [address], 11/08/2023 13:13:22 11/06/19 24 11/07/2023 COMP. METAB OLIC PANEL (14) eGFR 71 mL/mi n/1.7 3 >59 Not Available [facility] ([facility]) [address] [facility], [place], [address], 11/08/2023 13:13:22 11/06/19 24 11/07/2023 COMP. METAB OLIC PANEL (14) BUN/creatini ne ratio 17 10-24 Not Available [facility] ([facility]) [address] [facility], [place], [address], 11/08/2023 13:13:22 11/06/19 24 11/07/2023 COMP. METAB OLIC PANEL (14) sodium 138 mmol/ L 134-14 4 Not Available [facility] ([facility]) [address] [place], [address], 11/08/2023 13:13:22 11/06/19 24 11/07/2023 COMP. METAB OLIC PANEL (14) potassium 3.8 mmol/ L 3.5-5. 2 Not Available [facility] ([facility]) [address] [facility], [place], [address], 11/08/2023 13:13:22 11/06/19 24 11/07/2023 COMP. METAB OLIC PANEL (14) chloride 99 mmol/ L 96-106 Not Available [facility] ([facility]) [address] [place], [address], 11/08/2023 13:13:22 11/06/19 24 11/07/2023 COMP. METAB OLIC PANEL (14) carbon dioxide, total 24 mmol/ L 20-29 Not Available [facility] ([facility]) [address] [facility], [place], [address], 11/08/2023 13:13:22 11/06/19 24 11/07/2023 COMP. METAB OLIC PANEL (14) calcium 10.6 mg/dL 8.6-10 .2 above high normal Not Available [facility] ([facility]) [address] [facility], [place], [address], 11/08/2023 13:13:22 11/06/19 24 11/07/2023 COMP. METAB OLIC PANEL (14) protein, total 7.1 g/dL 6.0-8. 5 Not Available [facility] ([facility]) [address] [facility], [place], [address], 11/08/2023 13:13:22 11/06/19 24 11/07/2023 COMP. METAB OLIC PANEL (14) albumin 4.5 g/dL 3.8-4. 8 Not Available [facility] ([facility]) [address] [facility], [place], [address], 11/08/2023 13:13:22 11/06/19 24 11/07/2023 COMP. METAB OLIC PANEL (14) globulin, total 2.6 g/dL 1.5-4. 5 Not Available [facility] ([facility]) [address] [facility], [place], [address], 11/08/2023 13:13:22 11/06/19 24 11/07/2023 COMP. METAB OLIC PANEL (14) bilirubin, total 0.4 mg/dL 0.0-1. 2 Not Available [facility] ([facility]) [address] [place], [address], 11/08/2023 13:13:22 11/06/19 24 11/07/2023 COMP. METAB OLIC PANEL (14) alkaline phosphatase 63 IU/L 44-121 Not Available [facility]) [address] [facility], [place], [address], 11/08/2023 13:13:22 11/06/19 24 11/07/2023 COMP. METAB OLIC PANEL (14) AST (SGOT) 16 IU/L 0-40 Not Available [facility] ([facility]) [address] [facility], [place], [address], 11/08/2023 13:13:22 11/06/19 24 11/07/2023 COMP. METAB OLIC PANEL (14) ALT (SGPT) 16 IU/L 0-44 Not Available [facility] ([facility]) [address] [facility], [place], [address], 11/08/2023 13:13:22 11/06/19 24 11/07/2023 PROST ATE-S PECIF IC AG prostate specific Ag 4.0 NG/mL 0.0-4. 0 Marly ECLIA metho dolog y. Accor ding to the Ameri can Urolo g[employer] Ass[employer] iatio n, Serum PSA shoul d decre ase and remai n at undet ectab le level s after radic al prost atect mt. The AUA defin es bioch emica l recur rence as an initi al PSA value 0.2 ng/mL or great er follo wed by a subse quent confi rmato ry PSA value 0.2 ng/mL or great er. Value s obtai vielka with diffe rent assay metho ds or kits canno t be used inter yoon eably . Resul ts canno t be inter prete d as absol sher evide nce of the prese nce or absen ce of branden tovar se. Not Available [facility] ([facility]) [address] [facility], [place], [address], 11/08/2023 13:13:22 11/06/19 24 11/06/2023 HbA1c (hemo globi n A1c), blood HbA1c 9.1 Not Available In-Office Order Internal Use Only DO Not Attach Compendium DO Not Attach Compendium, Do Not Delete/merge, [id number] 11/06/2023 14:39:58 11/06/19 24 11/07/2023 Lipid 1996 panel - Serum or Plasm a cholesterol [mass/volume ] in serum or plasma 174 ARIAN STERO L 174 Not Available Not Available 05/22/2024 09:24:55 11/06/19 24 11/07/2023 Lipid 1996 panel - Serum or Plasm a cholesterol in HDL [mass/volume ] in serum or plasma 39 HDL 39 Not Available Not Available 05/22/2024 09:24:55 11/06/19 24 11/07/2023 Lipid 1996 panel - Serum or Plasm a triglyceride [mass/volume ] in serum or plasma 187 TRIGL YCERI BENJA 187 Not Available Not Available 05/22/2024 09:24:55 11/06/19 24 11/07/2023 Lipid 1996 panel - Serum or Plasm a cholesterol in LDL [mass/volume ] in serum or plasma by calculation 102 LDL (CALC ULATE D) 102 Not Available Not Available 05/22/2024 09:24:55 11/06/19 24 11/06/2023 Hemog lobin A1c/H emogl obin. total in Blood hemoglobin A1C/hemoglob in.total in blood 9.1 % HGB A1C 9.1 % Not Available Not Available 05/22/2024 09:24:55 11/06/19 24 11/06/2023 Compr ehens fredrick metab olic 2000 panel - Serum or Plasm a sodium [moles/volum e] in serum or plasma 138 SODIU M S/P/B 138 Not Available Not Available 05/22/2024 09:24:55 11/06/19 24 11/06/2023 Compr ehens fredrick metab olic 2000 panel - Serum or Plasm a potassium [moles/volum e] in serum or plasma 3.8 POTAS SIUM S/P/B 3.8 Not Available Not Available 05/22/2024 09:24:55 11/06/19 24 11/06/2023 Compr ehens fredrick metab olic 2000 panel - Serum or Plasm a carbon dioxide, total [moles/volum e] in serum or plasma 24 CO2 24 Not Available Not Available 05/22/2024 09:24:55 11/06/19 24 11/06/2023 Compr [employer] fredrick metab olic 1999 panel - Serum or Plasm a chloride [moles/volum e] in serum or plasma 99 CHLOR SHANNA S/P/B 99 Not Available Not Available 05/22/2024 09:24:55 11/06/19 24 11/06/2023 Compr [employer] fredrick metab olic 1999 panel - Serum or Plasm a glucose [mass/volume ] in serum or plasma 217 mg/dL GLUCO SE 217 mg/dL Not Available Not Available 05/22/2024 09:24:55 11/06/19 24 11/06/2023 Compr [employer] fredrick metab olic 1999 panel - Serum or Plasm a calcium [mass/volume ] in serum or plasma 10.6 CALCI UM S/P/B 10.6 Not Available Not Available 05/22/2024 09:24:55 11/06/19 24 11/06/2023 Compr [employer] fredrick metab olic 1999 panel - Serum or Plasm a urea nitrogen [mass/volume ] in serum or plasma 18 BUN 18 Not Available Not Available 05/22/2024 09:24:55 11/06/19 24 11/06/2023 Compr [employer] fredrick [employer] olic 1999 panel - Serum or Plasm a creatinine [mass/volume ] in serum or plasma 1.08 low: 0.7hig h: 1.3 CREAT ININE S/P/B 1.08 0.7 - 1.3 Not Available Not Available 05/22/2024 09:24:55 11/06/19 24 11/06/2023 Compr [employer] fredrick metab olic 1999 panel - Serum or Plasm a glomerular filtration rate/1.73 sq M.predicted among non-blacks [volume rate/area] in serum, plasma or blood by creatinine-b ased formula (MDRD) 71 GFR ESTIM ATE 71 Not Available Not Available 05/22/2024 09:24:55 11/06/19 24 11/06/2023 Compr [employer] fredrick metab olic 1999 panel - Serum or Plasm a alkaline phosphatase [enzymatic activity/vol ume] in serum or plasma 63 ALKAL INE PHOSP HATAS E S/P/B 63 Not Available Not Available 05/22/2024 09:24:55 11/06/19 24 11/06/2023 [facility] 1999 panel - Serum or Plasm a alanine aminotransfe rase [enzymatic activity/vol ume] in serum or plasma 16 ALT 16 Not Available Not Available 05/22/2024 09:24:55 11/06/19 24 11/06/2023 [facility] 1999 panel - Serum or Plasm a aspartate aminotransfe rase [enzymatic activity/vol ume] in serum or plasma 16 AST 16 Not Available Not Available 05/22/2024 09:24:55 11/06/19 24 11/06/2023 [facility] 1999 panel - Serum or Plasm a bilirubin.to flora [mass/volume ] in serum or plasma 0.4 BILIR UBIN TOTAL S/P/B 0.4 Not Available Not Available 05/22/2024 09:24:55 11/06/19 24 11/06/[address] [facility] panel - Serum or Plasm a albumin [mass/volume ] in serum or plasma 4.5 low: 3.5hig h: 5 ALBUM IN S/P/B 4.5 3.5 - 5.0 Not Available Not Available 05/22/2024 09:24:55 11/06/19 24 11/06/[address] [facility] panel - Serum or Plasm a protein [mass/volume ] in serum or plasma 7.1 TOTAL PROTE IN S/P/B 7.1 Not Available Not Available 05/22/2024 09:24:55 11/06/19 24 11/06/2023 [facility] 1999 panel - Serum or Plasm a globulin [mass/volume ] in serum 2.6 GLOBU CORRIE 2.6 Not Available Not Available 05/22/2024 09:24:55 11/06/19 24 11/06/2023 Lipid 1995 panel - Serum or Plasm a cholesterol [mass/volume ] in serum or plasma 174 ARIAN STERO L 174 Not Available Not Available 05/22/2024 09:24:55 11/06/19 24 11/06/2023 Lipid 1995 panel - Serum or Plasm a cholesterol in HDL [mass/volume ] in serum or plasma 39 HDL 39 Not Available Not Available 05/22/2024 09:24:55 11/06/19 24 11/06/2023 Lipid 1996 panel - Serum or Plasm a triglyceride [mass/volume ] in serum or plasma 187 TRIGL YCERI BENJA 187 Not Available Not Available 05/22/2024 09:24:55 11/06/19 24 11/06/2023 Lipid 1996 panel - Serum or Plasm a cholesterol in LDL [mass/volume ] in serum or plasma by calculation 101 LDL (CALC ULATE D) 101 Not Available Not Available 05/22/2024 09:24:55 01/29/20 24 01/31/2024 COMP. METAB OLIC PANEL (14) glucose 247 mg/dL 70-99 above high normal Not Available [facility] ([facility]) [address] [place], [address], 01/31/2024 11:17:23 01/29/20 24 01/31/2024 COMP. METAB OLIC PANEL (14) BUN 40 mg/dL 8-27 above high normal Not Available [facility] ([facility]) [address] [place], [address], 01/31/2024 11:17:23 01/29/20 24 01/31/2024 COMP. METAB OLIC PANEL (14) creatinine 1.50 mg/dL 0.76-1 .27 above high normal Not Available [facility] ([facility]) [address] [place], [address], 01/31/2024 11:17:23 01/29/20 24 01/31/2024 COMP. METAB OLIC PANEL (14) eGFR 48 mL/mi n/1.7 3 >59 below low normal Not Available [facility] ([facility]) [address] [place], [address], 01/31/2024 11:17:23 01/29/20 24 01/31/2024 COMP. METAB OLIC PANEL (14) BUN/creatini ne ratio 27 10-24 above high normal Not Available [facility] ([facility]) [address] [place], [address], 01/31/2024 11:17:23 01/29/20 24 01/31/2024 COMP. METAB OLIC PANEL (14) sodium 136 mmol/ L 134-14 4 Not Available [facility] ([facility]) [address] [place], [address], 01/31/2024 11:17:23 01/29/20 24 01/31/2024 COMP. METAB OLIC PANEL (14) potassium 4.3 mmol/ L 3.5-5. 2 Not Available [facility] ([facility]) [address] [facility], [place], [address], 01/31/2024 11:17:23 01/29/20 24 01/31/2024 COMP. METAB OLIC PANEL (14) chloride 99 mmol/ L 96-106 Not Available [facility] ([facility]) [address] [facility], [place], [address], 01/31/2024 11:17:23 01/29/20 24 01/31/2024 COMP. METAB OLIC PANEL (14) carbon dioxide, total 21 mmol/ L 20-29 Not Available [facility] ([facility]) [address] [place], [address], 01/31/2024 11:17:23 01/29/20 24 01/31/2024 COMP. METAB OLIC PANEL (14) calcium 10.0 mg/dL 8.6-10 .2 Not Available [facility] ([facility]) [address] [place], [address], 01/31/2024 11:17:23 01/29/20 24 01/31/2024 COMP. METAB OLIC PANEL (14) protein, total 7.1 g/dL 6.0-8. 5 Not Available [facility] ([facility]) [address] [place], [address], 01/31/2024 11:17:23 01/29/20 24 01/31/2024 COMP. METAB OLIC PANEL (14) albumin 4.4 g/dL 3.8-4. 8 Not Available [facility] ([facility]) [address] [facility], [place], [address], 01/31/2024 11:17:23 01/29/20 24 01/31/2024 COMP. METAB OLIC PANEL (14) globulin, total 2.7 g/dL 1.5-4. 5 Not Available [facility] ([facility]) [address] [facility] [place], [address], 01/31/2024 11:17:23 01/29/20 24 01/31/2024 COMP. METAB OLIC PANEL (14) bilirubin, total 0.4 mg/dL 0.0-1. 2 Not Available [facility] ([facility]) [address] [facility], [place], [address], 01/31/2024 11:17:23 01/29/20 24 01/31/2024 COMP. METAB OLIC PANEL (14) alkaline phosphatase 70 IU/L 44-121 Not Available [facility]) [address] [facility], [place], [address], 01/31/2024 11:17:23 01/29/20 24 01/31/2024 COMP. METAB OLIC PANEL (14) AST (SGOT) 18 IU/L 0-40 Not Available [facility] ([facility]) [address] [facility], [place], [address], 01/31/2024 11:17:23 01/29/20 24 01/31/2024 COMP. METAB OLIC PANEL (14) ALT (SGPT) 17 IU/L 0-44 Not Available [facility] ([facility]) [address] [place], [address], 01/31/2024 11:17:23 01/29/20 24 01/31/2024 TSH RFX ON ABNOR MAL TO FREE T4 TSH 2.490 uIU/m L 0.450- 4.500 Not Available [facility] ([facility]) [address] [facility], [place], [address], 01/31/2024 11:17:24 01/29/20 24 01/31/2024 VITAM IN B12 AND FOLAT E vitamin B12 1171 pg/mL 232-12 45 Not Available [facility] ([facility]) [address] [place], [address], 01/31/2024 11:17:26 01/29/20 24 01/31/2024 VITAM IN B12 AND FOLAT E folate (folic acid), serum 11.9 NG/mL >3.0 A serum folat e cristy ntrat ion of less than 3.1 ng/mL is consi dered to repre sent clini nir defic iency . Not Available [facility] ([facility]) [address] [place], [address], 01/31/2024 11:17:26 01/29/20 24 01/31/2024 IRON AND TIBC iron bind.cap.(TI BC) 333 ug/dL 250-45 0 Not Available [facility] ([facility]) [address] [facility], [place], [address], 01/31/2024 11:17:27 01/29/20 24 01/31/2024 IRON AND TIBC UIBC 271 ug/dL 111-34 3 Not Available [facility] ([facility]) [address] [place], [address], 01/31/2024 11:17:27 01/29/20 24 01/31/2024 IRON AND TIBC iron 62 ug/dL 38-169 Not Available [facility] ([facility]) [address] [place], [address], 01/31/2024 11:17:27 01/29/20 24 01/31/2024 IRON AND TIBC iron saturation 19 % 15-55 Not Available [facility]) [address] [place], [address], 01/31/2024 11:17:27 01/29/20 24 01/29/2024 gluco se, edele rstic k, blood Blood Glucose: mg/dl 257 Not Available In-Off ice Order Internal Use Only DO Not Attach Compendium DO Not Attach Compendium, Do Not Delete/merge, [id number] 01/29/2024 15:58:30 01/29/20 24 01/29/2024 HbA1c (hemo globi n A1c), blood HbA1c 7.8 Not Available In-Office Order Internal Use Only DO Not Attach Compendium DO Not Attach Compendium, Do Not Delete/merge, [id number] 01/29/2024 15:58:26 01/31/20 24 02/02/2024 COMP. METAB OLIC PANEL (14) glucose 165 mg/dL 70-99 above high normal Not Available [facility] ([facility]) [address] [place], [address], 02/02/2024 07:16:58 01/31/20 24 02/02/2024 COMP. METAB OLIC PANEL (14) BUN 27 mg/dL 8-27 Not Available [facility] ([facility]) [address] [facility], [place], [address], 02/02/2024 07:16:58 01/31/20 24 02/02/2024 COMP. METAB OLIC PANEL (14) creatinine 1.29 mg/dL 0.76-1 .27 above high normal Not Available [facility] ([facility]) [address] [place], [address], 02/02/2024 07:16:58 01/31/20 24 02/02/2024 COMP. METAB OLIC PANEL (14) eGFR 57 mL/mi n/1.7 3 >59 below low normal Not Available [facility] ([facility]) [address] [place], [address], 02/02/2024 07:16:58 01/31/20 24 02/02/2024 COMP. METAB OLIC PANEL (14) BUN/creatini ne ratio 21 10-24 Not Available [facility] ([facility]) [address] [facility] [place], [address], 02/02/2024 07:16:58 01/31/20 24 02/02/2024 COMP. METAB OLIC PANEL (14) sodium 139 mmol/ L 134-14 4 Not Available [facility] ([facility]) [address] [facility] [place], [address], 02/02/2024 07:16:58 01/31/20 24 02/02/2024 COMP. METAB OLIC PANEL (14) potassium 4.1 mmol/ L 3.5-5. 2 Not Available [facility] ([facility]) [address] [facility], [place], [address], 02/02/2024 07:16:58 01/31/20 24 02/02/2024 COMP. METAB OLIC PANEL (14) chloride 102 mmol/ L 96-106 Not Available [facility] ([facility]) [address] [facility] [place], [address], 02/02/2024 07:16:58 01/31/20 24 02/02/2024 COMP. METAB OLIC PANEL (14) carbon dioxide, total 21 mmol/ L 20-29 Not Available [facility] ([facility]) [address] [place], [address], 02/02/2024 07:16:58 01/31/20 24 02/02/2024 COMP. METAB OLIC PANEL (14) calcium 9.6 mg/dL 8.6-10 .2 Not Available [facility] ([facility]) [address] [place], [address], 02/02/2024 07:16:58 01/31/20 24 02/02/2024 COMP. METAB OLIC PANEL (14) protein, total 7.0 g/dL 6.0-8. 5 Not Available [facility] ([facility]) [address], [place], [address], 02/02/2024 07:16:58 01/31/20 24 02/02/2024 COMP. METAB OLIC PANEL (14) albumin 4.2 g/dL 3.8-4. 8 Not Available [facility] ([facility]) [address] [place], [address], 02/02/2024 07:16:58 01/31/20 24 02/02/2024 COMP. METAB OLIC PANEL (14) globulin, total 2.8 g/dL 1.5-4. 5 Not Available [facility] ([facility]) [address] [place], [address], 02/02/2024 07:16:58 01/31/20 24 02/02/2024 COMP. METAB OLIC PANEL (14) bilirubin, total 0.4 mg/dL 0.0-1. 2 Not Available [facility] ([facility]) [address] [place], [address], 02/02/2024 07:16:58 01/31/20 24 02/02/2024 COMP. METAB OLIC PANEL (14) alkaline phosphatase 65 IU/L 44-121 Not Available [facility] ([facility]) [address] [place], [address], 02/02/2024 07:16:58 01/31/20 24 02/02/2024 COMP. METAB OLIC PANEL (14) AST (SGOT) 21 IU/L 0-40 Not Available [facility] ([facility]) [address] [facility] [place], [address], 02/02/2024 07:16:58 01/31/20 24 02/02/2024 COMP. METAB OLIC PANEL (14) ALT (SGPT) 19 IU/L 0-44 Not Available [facility] ([facility]) [address] [place], [address], 02/02/2024 07:16:58 01/31/20 24 02/01/2024 Compr [employer] fredrick metab olic 1999 panel - Serum or Plasm a sodium [moles/volum e] in serum or plasma 139 SODIU M S/P/B 139 Not Available Not Available 05/22/2024 09:24:55 01/31/20 24 02/01/2024 Compr ehens fredrick metab olic 1999 panel - Serum or Plasm a potassium [moles/volum e] in serum or plasma 4.1 POTAS SIUM S/P/B 4.1 Not Available Not Available 05/22/2024 09:24:55 01/31/20 24 02/01/2024 Compr ehens fredrick metab olic 1999 panel - Serum or Plasm a carbon dioxide, total [moles/volum e] in serum or plasma 21 CO2 21 Not Available Not Available 05/22/2024 09:24:55 01/31/20 24 02/01/2024 Compr [employer] fredrick metab olic 1999 panel - Serum or Plasm a chloride [moles/volum e] in serum or plasma 102 CHLOR SHANNA S/P/B 102 Not Available Not Available 05/22/2024 09:24:55 01/31/20 24 02/01/2024 Compr [employer] fredrick metab olic 1999 panel - Serum or Plasm a glucose [mass/volume ] in serum or plasma 165 mg/dL GLUCO SE 165 mg/dL Not Available Not Available 05/22/2024 09:24:55 01/31/20 24 02/01/2024 Compr [employer] fredrick metab olic 1999 panel - Serum or Plasm a calcium [mass/volume ] in serum or plasma 9.6 CALCI UM S/P/B 9.6 Not Available Not Available 05/22/2024 09:24:55 01/31/20 24 02/01/2024 Compr [employer] fredrick metab olic 1999 panel - Serum or Plasm a urea nitrogen [mass/volume ] in serum or plasma 27 BUN 27 Not Available Not Available 05/22/2024 09:24:55 01/31/20 24 02/01/2024 Compr [employer] fredrick metab olic 2000 panel - Serum or Plasm a creatinine [mass/volume ] in serum or plasma 1.29 low: 0.7hig h: 1.3 CREAT ININE S/P/B 1.29 0.7 - 1.3 Not Available Not Available 05/22/2024 09:24:55 01/31/20 24 02/01/2024 Compr [employer] fredrick [employer] 1999 panel - Serum or Plasm a glomerular filtration rate/1.73 sq M.predicted among non-blacks [volume rate/area] in serum, plasma or blood by creatinine-b ased formula (MDRD) 57 GFR ESTIM ATE 57 Not Available Not Available 05/22/2024 09:24:55 01/31/20 24 02/01/2024 Compr [employer] fredrick metab olic 1999 panel - Serum or Plasm a alkaline phosphatase [enzymatic activity/vol ume] in serum or plasma 65 ALKAL INE PHOSP HATAS E S/P/B 65 Not Available Not Available 05/22/2024 09:24:55 01/31/20 24 02/01/2024 Compr [employer] fredrick [employer] olic 1999 panel - Serum or Plasm a alanine aminotransfe rase [enzymatic activity/vol ume] in serum or plasma 19 ALT 19 Not Available Not Available 05/22/2024 09:24:55 01/31/20 24 02/01/2024 Compr [employer] fredrick [employer] olic 1999 panel - Serum or Plasm a aspartate aminotransfe rase [enzymatic activity/vol ume] in serum or plasma 21 AST 21 Not Available Not Available 05/22/2024 09:24:55 01/31/20 24 02/01/2024 Compr [employer] fredrick [employer] olic 1999 panel - Serum or Plasm a bilirubin.to flora [mass/volume ] in serum or plasma 0.4 BILIR UBIN TOTAL S/P/B 0.4 Not Available Not Available 05/22/2024 09:24:55 01/31/20 24 02/01/2024 Compr [employer] fredrick [employer] olic 1999 panel - Serum or Plasm a albumin [mass/volume ] in serum or plasma 4.2 low: 3.5hig h: 5 ALBUM IN S/P/B 4.2 3.5 - 5.0 Not Available Not Available 05/22/2024 09:24:55 01/31/20 24 02/01/2024 Compr ehens fredrick metab olic 1999 panel - Serum or Plasm a protein [mass/volume ] in serum or plasma 7 TOTAL PROTE IN S/P/B 7.0 Not Available Not Available 05/22/2024 09:24:55 01/31/20 24 02/01/2024 Compr ehens fredrick metab olic 1999 panel - Serum or Plasm a globulin [mass/volume ] in serum 2.8 GLOBU CORRIE 2.8 Not Available Not Available 05/22/2024 09:24:55 05/06/19 25 05/08/2024 ALBUM IN/CR EAT RATIO , RANDO M UR creatinine, urine 57.4 mg/dL notest ab. Not Available [facility] ([facility]) [address] [place], [address], 05/08/2024 10:14:09 05/06/19 25 05/08/2024 ALBUM IN/CR EAT RATIO , RANDO M UR albumin, urine 71.7 ug/mL notest ab. Not Available [facility] ([facility]) [address] [place], [address], 05/08/2024 10:14:09 05/06/19 25 05/08/2024 ALBUM IN/CR EAT RATIO , RANDO M UR alb/creat ratio 125 mg/g_ creat 0-29 above high normal Betzy l: 0 - 29 Moder ately incre ased: 30 - 300 Sever jillian incre ased: >300 Not Available [facility] ([facility]) [address] [place], [address], 05/08/2024 10:14:09 05/06/19 25 05/08/2024 COMP. METAB OLIC PANEL (14) glucose 153 mg/dL 70-99 above high normal Not Available [facility] ([facility]) [address] [place], [address], 05/08/2024 10:14:10 05/06/19 25 05/08/2024 COMP. METAB OLIC PANEL (14) BUN 30 mg/dL 8-27 above high normal Not Available [facility] ([facility]) [address] [place], [address], 05/08/2024 10:14:10 05/06/19 25 05/08/2024 COMP. METAB OLIC PANEL (14) creatinine 1.11 mg/dL 0.76-1 .27 Not Available [facility] ([facility]) [address] [place], [address], 05/08/2024 10:14:10 05/06/19 25 05/08/2024 COMP. METAB OLIC PANEL (14) eGFR 68 mL/mi n/1.7 3 >59 Not Available [facility] ([facility]) [address] [facility] [place], [address], 05/08/2024 10:14:10 05/06/19 25 05/08/2024 COMP. METAB OLIC PANEL (14) BUN/creatini ne ratio 27 10-24 above high normal Not Available [facility] ([facility]) [address] [facility] [place], [address], 05/08/2024 10:14:10 05/06/19 25 05/08/2024 COMP. METAB OLIC PANEL (14) sodium 137 mmol/ L 134-14 4 Not Available [facility] ([facility]) [address] [facility] [place], [address], 05/08/2024 10:14:10 05/06/19 25 05/08/2024 COMP. METAB OLIC PANEL (14) potassium 4.6 mmol/ L 3.5-5. 2 Not Available [facility] ([facility]) [address] [facility] [place], [address], 05/08/2024 10:14:10 05/06/19 25 05/08/2024 COMP. METAB OLIC PANEL (14) chloride 101 mmol/ L 96-106 Not Available [facility] ([facility]) [address] [facility] [place], [address], 05/08/2024 10:14:10 05/06/19 25 05/08/2024 COMP. METAB OLIC PANEL (14) carbon dioxide, total 21 mmol/ L 20-29 Not Available [facility] ([facility]) [address] [facility], [place], [address], 05/08/2024 10:14:10 05/06/19 25 05/08/2024 COMP. METAB OLIC PANEL (14) calcium 9.8 mg/dL 8.6-10 .2 Not Available [facility] ([facility]) [address] [facility] [place], [address], 05/08/2024 10:14:10 05/06/19 25 05/08/2024 COMP. METAB OLIC PANEL (14) protein, total 7.2 g/dL 6.0-8. 5 Not Available [facility] ([facility]) [address] [facility] [place], [address], 05/08/2024 10:14:10 05/06/19 25 05/08/2024 COMP. METAB OLIC PANEL (14) albumin 4.6 g/dL 3.8-4. 8 Not Available [facility] ([facility]) [address] [facility], [place], [address], 05/08/2024 10:14:10 05/06/19 25 05/08/2024 COMP. METAB OLIC PANEL (14) globulin, total 2.6 g/dL 1.5-4. 5 Not Available [facility] ([facility]) [address] [facility] [place], [address], 05/08/2024 10:14:10 05/06/19 25 05/08/2024 COMP. METAB OLIC PANEL (14) bilirubin, total 0.3 mg/dL 0.0-1. 2 Not Available [facility] ([facility]) [address] [facility] [place], [address], 05/08/2024 10:14:10 05/06/19 25 05/08/2024 COMP. METAB OLIC PANEL (14) alkaline phosphatase 64 IU/L 44-121 Not Available [facility] ([facility]) [address] [place], [address], 05/08/2024 10:14:10 05/06/19 25 05/08/2024 COMP. METAB OLIC PANEL (14) AST (SGOT) 14 IU/L 0-40 Not Available [facility] ([facility]) [address] [facility], [place], [address], 05/08/2024 10:14:10 05/06/19 25 05/08/2024 COMP. METAB OLIC PANEL (14) ALT (SGPT) 12 IU/L 0-44 Not Available [facility] ([facility]) [address] [place], [address], 05/08/2024 10:14:10 05/06/19 25 05/08/2024 HEMOG LOBIN A1C hemoglobin A1C 7.8 % 4.8-5. 6 above high normal Predi abete s: 5.7 - 6.4 Diabe anup: >6.4 Glyce elenita contr ol for adult s with diabe anup: <7.0 Not Available [facility] ([facility]) [address] [place], [address], 05/08/2024 10:14:11 01/31/20 24 01/30/2024 rhyth m strip , EKG* No observ ation record ed. [facility] (Pulmonary) [address], [place], [address], 02/01/2024 14:20:25 02/22/20 24 02/22/2024 US, delonte kaplan id arter y No observ ation record ed. [facility] [address], [place], [address], 02/28/2024 15:32:45 02/22/20 24 02/22/2024 US, gavin x, carot id arter y No observ ation record ed. [facility] [address] [facility] [address], [place], [address], 02/28/2024 15:32:45 06/12/19 25 06/11/2024 imagi ng/di agnos tic resul t No observ ation record ed. [facility] [address], [place], [address], 06/11/2024 15:15:16 Result Notes None recorded. Problems Name Problem SNOMED Code Status Onset Date Resolution Date Notes Provider Name and Address Organization Details Recorded Time Type 2 diabetes mellitus 25983250 Active 2023 JOSÉ MANUEL FU Attn: Accountin g,[address] [facility], [place], [address], [place] [facility] 4 15:01:01 Hyperlipide carmel 25819591 Active 2023 JOSÉ MANUEL FU Attn: Accountin g,[address] [facility], [place], [address], [place] [facility] 4 15:15:34 Benign prostatic hyperplasia 110281746 Active 2023 JOSÉ MANUEL FU Attn: Accountin g,[address] [facility], [place], [address], [place] [facility] 4 15:15:37 Tinnitus 10088284 Active 2023 JOSÉ MANUEL FU Attn: Accountin g,[address] [facility], [place], [address], [place] [facility] 4 15:15:38 Osteoarthri tis 178877280 Active 2023 JOSÉ MANUEL FU Attn: Accountin g,[address] [facility], [place], [address], [place] [facility] 4 15:15:40 Tenosynovit is of right radial styloid 5121407657028 9100 Active 2023 JOSÉ MANUEL FU Attn: Rafael g,[address], [place], [address], [place] [facility] 4 15:15:43 Essential hypertensio n 17271335 Active 2023 JOSÉ MANUEL UF Attn: Rafael g,[address] [facility], [place], [address], [place] [facility] 4 08:14:38 Carotid artery stenosis 39597522 Active 2023 JOSÉ MANUEL FU Attn: Accountdejah g,[address] [facility], [place], [address], [place] [facility] 4 15:18:54 Chronic kidney disease 436250977 Active 2024 JOSÉ MANUEL FU Attn: Rafael g,[address] [facility], [place], [address], [place] [facility] 5 10:32:05 Notes:Some problems listed i n Documents: #[id number], #[id number] could not be added to this patient's chart. Please review these documents and add these problems to the patient's chart manually as needed. Problem Notes None recorded. Procedures Surgical History None recorded. Imaging Results Imaging Date Name Status LastModified by Organiz [facility] Details LastModified Time 01/30/2024 rhythm strip, EKG* completed [facility] (Pulmonary) [address] [place] [address], [phone], 02/01/2024 14:20:25 02/22/2024 US, duplex, carotid artery completed [address] [place] [address], [address], 02/28/2024 15:32:45 02/22/2024 US, duplex, carotid artery completed [address] [place] [address], [address], 02/28/2024 15:32:45 06/11/2024 imaging/diag nostic result active [address] [place], [address], 06/11/2024 15:15:16 Procedure Notes None recorded. Medical Equipment None Reported. Allergies No known drug allergies Medications Name Sig Start Date Stop Date Status Note LastModified by Organization Details LastModified Time terazosin 5 mg capsule TAKE 1 CAPSULE BY MOUTH ONCE DAILY active Not Available Not Available No t Available pioglitazon e 15 mg tablet TAKE ONE TABLET BY MOUTH EVERY MORNING FOR DIABETES active Not Available Not Available No t Available lisinopril 20 mg tablet TAKE 1 TABLET BY MOUTH ONCE DAILY 01/28 completed Not Available Not Available Not Available prednisone 20 mg tablet TAKE 2 TABLETS BY MOUTH ONCE DAILY IN THE MORNING WITH FOOD FOR 5 DAYS 11/05 completed Not Available Not Available Not Available acarbose 50 mg tablet TAKE 2 TABLETS BY MOUTH THREE TIMES DAILY 2024 active Not Available Not Available Not Avai lable OneTouch Ultra Test strips USE TO CHECK BLOOD SUGAR active Not Available Not Available No t Available acarbose 100 mg tablet TAKE 1 TABLET BY MOUTH THREE TIMES DAILY active Not Available Not Available No t Available pantoprazol e 40 mg tablet,james yed release TAKE 1 TABLET BY MOUTH ONCE DAILY 11/05 completed Not Available Not Available Not Available simvastatin 20 mg tablet TAKE 1 TABLET BY MOUTH ONCE DAILY active Not Available Not Available No t Available metformin 1,000 mg tablet Take 1 tablet twice a day by oral route. active Not Available Not Available No t Available glimepiride 4 mg tablet TAKE 1 TABLET BY MOUTH TWICE DAILY active Not Available Not Available No t Available diclofenac sodium 75 mg tablet,james yed release 11/05 completed Not Available Not Available Not Available hydrochloro thiazide 25 mg tablet TAKE 1 TABLET BY MOUTH ONCE DAILY 01/28 completed Not Available Not Available Not Available lisinopril 10 mg-hydrochl orothiazide 12.5 mg tablet TAKE 1 TABLET BY MOUTH ONCE DAILY active Not Available Not Available No t Available methylpredn isolone 4 mg tablets in a dose pack 11/05 completed Not Available Not Available Not Available terazosin 10 mg capsule TAKE 1 CAPSULE BY MOUTH ONCE DAILY active Not Available Not Available No t Available aspirin active Not Available Not Avail able Not Available Jardiance 25 mg tablet Take 1 tablet every day by oral route for 90 days. 05/06 completed Not Available Not Available Not Available OneTouch Verio Flex Meter USE TO CHECK GLUCOSE ONCE DAILY active Not Available Not Available No t Available OneTouch Delica Plus Lancet 33 gauge USE DIRECTED active Not Available Not Available No t Available Vitals Date Recorded Body height Body mass index (BMI) Body weight Heart rate Oxygen saturation Oxygen saturation in Arterial blood by Pulse oximetry Systolic blood pressure Diastolic blood pressure Provider Name and Address Organization Details Last Updated DateTime 4 157.48 cm 31.7 kg/m2 68366.8 8 g 93 /min 94 % 94 % 121 mm[Hg] 67 mm[Hg] Sammie Yee MA [facility] 4 14:32:27 Date Recorded Body height Body mass index (BMI) Body weight Heart rate Oxygen saturation Oxygen saturation in Arterial blood by Pulse oximetry Systolic blood pressure Diastolic blood pressure Provider Name and Address Organization Details Last Updated DateTime 4 157.48 cm 32 kg/m2 81576.6 6 g 102 /min 97 % 97 % 108 mm[Hg] 66 mm[Hg] Sammie Yee MA [facility] 4 16:49:42 Date Recorded Body height Body mass index (BMI) Body weight Heart rate Oxygen saturation Oxygen saturation in Arterial blood by Pulse oximetry Systolic blood pressure Diastolic blood pressure Provider Name and Address Organization Details Last Updated DateTime 4 157.48 cm 30.9 kg/m2 02231.1 1 g 104 /min 96 % 96 % 108 mm[Hg] 60 mm[Hg] Sammie Yee MA [facility] 4 15:55:12 Date Recorded Body height Body mass index (BMI) Body weight Heart rate Oxygen saturation Oxygen saturation in Arterial blood by Pulse oximetry Provider Name and Address Organization Details Last Updated DateTime 5 157.48 cm 32.2 kg/m2 45215.2 6 g 85 /min 97 % 97 % Sammie Yee MA [facility] 5 16:31:35 Date Recorded Systolic blood pressure Diastolic blood pressure Provider Name and Address Organization Details Last Updated DateTime 05/06/2024 125 mm[Hg] 69 mm[Hg] JOSÉ MANUEL FU Attn: Accounting,[address] [facility], [place], [address], [place] 05/20/2024 10:25:28 Social History Question Answer Notes LastModified by Organizat ion Details LastModified Time Tobacco Smoking Status Former Smoker 1982 stopped ROSE MARIE Cristobal, [place] 11/06/2023 14:30:57 What Is Your Level Of Alcohol Consumption? Occasional Rarely Information not available 11/06/2023 What Was The Date Of Your Most Recent Tobacco Screening? 05/06/2024 Information not available 05/06/2024 At What Age Did You Start Smoking Tobacco? 14 Information not available 11/06/2023 Do You Use Any Illicit Or Recreational Drugs? No Information not available 11/06/2023 Has Tobacco Cessation Counseling Been Provided? Yes Information not available 11/06/2023 On What Date Was Tobacco Cessation Counseling Provided? 05/06/2024 Information not available 05/06/2024 How Many Years Have You Smoked Tobacco? 10 Information not available 11/06/2023 Do You Or Have You Ever Used Any Other Forms Of Tobacco Or Nicotine? No Information not available 11/06/2023 Sex: Unknown Functional Status None recorded. Mental Status None recorded. Family History Nothing Reported. Medical History Condition Response Coronary Artery Disease N Other N High Blood Pressure Y Atrial Fibrillation N Kidney or Bladder Problems N Thyroid Problems N GI Problems N Depression N COPD N Blood Clots N Have you had a mammogram in the last yea r? N Skin Problems N Anemia N Heart Attack ([place]) N Anxiety Disorder N Diabetes Y Muscle, Joint, or Bone Problems N Seizures/Epilepsy N Have you had a colonoscopy in the last 1 0 years? N Acid Reflux (GERD) N Cancer N Stroke N Asthma N Allergies N Have you had a PSA blood test in the las t year? N High Cholesterol Y Hepatitis N Liver Disease N Headaches N Heart Failure N Osteoporosis N Immunizations Vaccine Type Date Status Note Provider Nam e and Address Organization Details Recorded Time Influenza, high-dose, quadrivalent, PF 3 completed ROSE MARIE Cristobal [place] 11/06/2023 14:42:54 Influenza, high-dose, quadrivalent, PF 2 completed Sammie Yee [place] null, [place] [facility] 11/06/2023 14:42:54 COVID-19, mRNA, LNP-S, PF, 30 mcg/0.3 mL dose 2 completed Sammie Yee [place], [place] [facility] 11/06/2023 14:42:54 Pneumococcal conjugate PCV20, polysaccharide BFQ139 conjugate, adjuvant, PF 4 completed JOSÉ MANUEL FU Attn: Accounting,[address] [place], [address], [place] [facility] 11/08/2023 14:33:08 Influenza, high-dose, trivalent, PF 4 completed JOSÉ MANUEL FU Attn: Accounting,[address] [place], [address], [place] [facility] 01/08/2024 08:09:20 Tdap 4 completed JOSÉ MANUEL FU Attn: Accounting,[address] [place], [address], [place] [facility] 01/08/2024 08:09:20 Past Encounters Encounter ID Performer Location Encounter Start Date Encounter Closed Date Diagnosis/Indication Diagnosis SNOMED-CT Code Diagnosis ICD10 Code Diagnosis Note [id number] JOSÉ MANUEL FU Counts include 234 beds at the [facility] [address] [place] [address] 11/06/2023 14:08:07 11/14/2023 14:25:27 Type 2 diabetes mellitus 35678163 E11.9 dx at age 51. not checking glucose. ordered him a machine. discussed his diet in detail. needs f/u in 3 months. medication s: He takes [id number] 0mg TID, metformin 1000mg bid and glimepride 4mg bidPLAN to stop acarbose and trial SGLT-2. will stop once we get his glucose log. Foot exam: (10/2023) Normal monofilame nt, dry skin plantar aspectEye Exam:will bring resultsAlb /Cr: 137, NOT CONTROLLED . start JardianceS tatin: simvastati n 20mg, good compliance ACEi: lisinopril 20mgpneumo taye vaccine: 10/2023 prevnar 20 Benign pro static hyperplasia 013972795 N40.0 Tinnitus 95620343 H93.11 3 years on R sidecan work up next time Osteoarthritis 342665324 M19.90 b/l thumb base paindoes affect his jobhas not seen ortho or been worked up+ Finkelstei n Tenosynovi tis of right radial styloid [id number] 6115633 M65.4 + Finkelstei n Administra tion of pneumococcal vaccine 23384806 Z23 agrees to vaccine today Essential hypertension 14189385 I10 controlled today. has good medication compliance . medication s: lisinopril 20mg and hcz 25. Patient asked today to cut hcz in HALF as jardiance is added on today. [id number] JOSÉ MANUEL FU [facility] [address] [place] [address] 01/04/2024 16:45:09 01/04/2024 17:15:26 Obesity 337589926 E66.9 Type 2 yesy betes mellitus 63776326 E11.9 dx at age 51. 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 medication s: He takes 0mg TID, metformin 1000mg bid and glimepride 4mg bidPLAN to stop acarbose and trial SGLT-2. will stop once we get his glucose log. Foot exam: (10/2023) Normal monofilame nt, dry skin plantar aspectEye Exam:will bring resultsAlb /Cr: 137, NOT CONTROLLED . start JardianceS tatin: simvastati n 20mg, good compliance ACEi: lisinopril 20mgpneumo taye vaccine: 10/2023 prevnar 20 Administra tion of influenza vaccine 21137845 Z23 Administra tion of diphtheria, pertussis, and tetanus vaccine 502216391 Z23 [id number] JOSÉ MANUEL FU [facility] [address] [place] [address] 01/29/2024 15:53:38 01/30/2024 09:55:18 Dizziness 410140305 R42 dizziness x 5 months worsening recently. denies cp, sob, palpitatio ns, falls, syncope. BP today is low (he did not cut his hcz in half), BG high (has been out of glimepirid e x 15 days). neuro exam normal. - needs eye exam- EKG- R/O anemia, thyroid- decrease BP medication and he will bring in home log- he has BG log at home he will bring Monday- ER if worsens or develops REYNOLDS, weakness, CP, sob Type 2 yesy betes mellitus 59479207 E11.9 dx at age 51. needs refills on glimepirid e. A1C has already improved to 7.8 from 9.1 with jardiance. medication s: He takes [id number] 0mg TID, metformin 1000mg bid and glimepride 4mg bidPLAN to stop acarbose and trial SGLT-2. will stop once we get his glucose log. Foot exam: (10/2023) Normal monofilame nt, dry skin plantar aspectEye Exam:will bring resultsAlb /Cr: 137, NOT CONTROLLED . continue JardianceS tatin: simvastati n 20mg, good compliance ACEi: lisinopril 20mgpneumo taye vaccine: 10/2023 prevnar 20 Essential hypertension 73778581 I10 low today. will combine his lisinopril and hcz and reduce dose as jardiance was started. medication s: lisinopril 20mg and hcz 25. Patient asked today to cut hcz in HALF as jardiance is added on today. [id number] Puja Kim MA [facility] [address] [place] [address] 02/01/2024 09:23:16 02/01/2024 09:43:12 [id number] JOSÉ MANUEL FU [facility] [address] [place] [address] 05/06/2024 16:26:09 05/20/2024 13:27:27 Chronic kidney disease 652584237 N18.9 check kidney function once moresend to nephrology ALB/CR urine: 125 04/2024, abnormal GFR 68, cr 1.11 04/2024 (improved) GFR 57 CR 1.29 01/2024 Type 2 yesy betgracy mellitus 51271228 E11.9 dx at age 51. needs refills on glimepirid e. A1C has already improved to 7.8 (04/2024) 7.8 (01/2024) 9.1% (10/2023)m edications : He takes qckkwzji10 0mg TID, pioglitazo ne metformin 1000mg bid and glimepride 4mg bid Foot exam: (10/2023) Normal monofilame nt, dry skin plantar aspectEye Exam:will bring resultsAlb /Cr: 137, NOT CONTROLLED .Statin: simvastati n 20mg, good compliance ACEi: lisinopril 20mgpneumo taye vaccine: 10/2023 prevnar 20 Carotid ar grace stenosis 64709891 I65.29 R carotid artery stenosis Electrocar diogram abnormal 098727658 R94.31 Health Concerns Section Related Observation LastModified by Organization Detai ls LastModified Time None Recorded Concern Status LastModified by Organization Details LastModified Time None Recorded Advance Directives Directive None Recorded Payers Encounter Date Sequence Insurance Name Policy Number Policy Munoz Covered Member ID Munoz Member ID Guarantor Name 11/06/2023 1 [facility] (MEDICARE REPLACEMENT/A DVANTAGE - HMO) [id number] Damien Ruff [id number] Damien Ruff 01/04/2024 1 [facility] (MEDICARE REPLACEMENT/A DVANTAGE - HMO) [id number] Damien Ruff [id number] Damien Ruff 01/29/2024 1 [facility] (MEDICARE REPLACEMENT/A DVANTAGE - HMO) [id number] Damien Ruff [id number] Damien Ruff 02/01/2024 1 [facility] (MEDICARE REPLACEMENT/A DVANTAGE - HMO) [id number] Damien Ruff [id number] Damien Ruff 05/06/2024 1 [facility] (MEDICARE REPLACEMENT/A DVANTAGE - HMO) [id number] Damien Ruff [id number] Damien Ruff Notes Date Note Type Note Provider Name and Address Organization Details Recorded Time 11/06/2023 text/html Damien is a 78 YO M here to establish care pmhxz DM2, Hyperlipidemia, OA, tinnitus (R ear) lasp pcp Dr Juan ivan and dr peralta prostate: terazosin 5 mg twice daily HTN: lisinopril 20mg hcz 25, good compliance with medications. denies s/e. DM: dx age 51. does not have glucose machine and would like one. has not been vaccinated for pneumonia. agrees to vaccines today. He takes acarbose TID, metformin 1000mg bid and glimepride 4mg bid colon screen 2021 at [place]. need records tinittus: c/o of r ear buzzing for about 3 years. JOSÉ MANUEL FU Attn: Accounting, [address] [facility], [place], [address], [facility] 11/08/2023 14:47:35 01/04/2024 text/html Damien is a 78 YO M here to establish care pmhxz DM2, Hyperlipidemia, OA, tinnitus (R ear) here for DM f/u He never picked up jardiance. His bg has been checked daily fasting and runs low 100's. occasionally 160's. He would like tdap and flu shot today. JOSÉ MANUEL FU Attn: Accounting, [address] [facility], [place], [address], [facility] 01/08/2024 08:15:55 01/29/2024 text/html Damien is a 78 YO M came to office today for acute visit c/o of episodes of dizziness He states he has had dizziness for >6 months. Episodes are very mild so he has ignored them. On Monday while shaving in front of mirror he felt dizzy and had to grab on to the sink. Episode lasted seconds and denies having any cp, sob, palpitations, syncope, falls. He has not had any other similar episodes. He still continues to have his mild dizzy episodes and feels they may be more frequent than before. He has not checked BP at home. BG has been >200 at times. BG fastin 80-130. he ran out of glipizide 15 days ago. He has continued to take full dose HCZ despite being advised to cut the pill i half once he picked up jardiance. He does like Jardiance and feels good on it. JOSÉ MANUEL FU Attn: Accounting,[address] [facility], [place], [address], [facility] 01/30/2024 08:25:47 05/06/2024 text/html Damien is here fo r follow up. He reports not taking jardiance due to cost of $400. He states last visit he attributes his dizziness to drinking monster energy drinks-he has cut them out. He also cut out tortillas. He did not f/u with cardiology for abnormal EKG. 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 JOSÉ MANUEL FU Attn: Accounting,[address] [facility], [place], [address], [facility] 05/20/2024 10:35:26
--- OUTSIDE RECORDS SUMMARY | 2024-06-11 15:34 | XMS_ITS | Clinical Summary ---
Author Organization [facility] Address [facility] [place] [address] Care Team Providers Care Bonding And Composite Fabricator Name Role Phone Natalie Chacko PA-C Primary Care Provider [phone] Medications empagliflozin (JARDIANCE) 25 MG tablet Take 1 tablet (25 mg total) by mouth daily. Active terazosin (HYTRIN) 10 MG capsule Take 1 capsule (10 mg total) by mouth nightly at bedtime. at bedtime. Active metFORMIN ER, OSM, (FORTAMET) 1000 MG TABLET SR 24 HR 24 hr tablet Take 1 tablet (1,000 mg total) by mouth every morning before breakfast. Active lisinopril-hydr oCHLOROthiazide (ZESTORETIC) 10-12.5 MG tablet Take 1 tablet by mouth daily. Active Lancets (ONETOUCH DELICA PLUS [id number]) Misc Acti ve pantoprazole EC (PROTONIX) 40 MG tablet Take 1 tablet (40 mg total) by mouth daily. Active acarbose (PRECOSE) 50 MG tablet Take 1 tablet (50 mg total) by mouth 3 (three) times daily with meals. Active diclofenac EC (VOLTAREN) 75 MG tablet Take 1 tablet (75 mg total) by mouth 2 (two) times daily. Active simvastatin (ZOCOR) 20 MG tablet Take 1 tablet (20 mg total) by mouth nightly at bedtime. 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 Gender Identity Not on file Sexual Orientation Not on file Plan of Treatment Health Maintenance Due Date Last Done Comments Hepatitis C 1963 Zoster Vaccines (1 of 2) 1996 RSV Immunization or 60+ Years (1 - 1-dose 75+ series) 2021 COVID-19 Vaccine (2 - 2023-2 5 season) 2023 04/08/2021 DTaP, Tdap and Td Vaccines ( 2 - Td or Tdap) 01/03/2034 01/04/2024 Pneumococcal Vaccine: 65+ Years Completed Influenza Adult Completed 01/04/2024 Meningococcal B Vaccine Aged Out No l onger eligible based on patient's age to complete this topic Meningococcal Vaccine Aged Out No melissa ramesh eligible based on patient's age to complete this topic RSV Immunizations Under 20 Months Aged Out No longer eligible based on patient's age to complete this topic Care Teams Bonding And Composite Fabricator Relationship Specialty Start Date End Date Natalie Chacko PA-C [address] [place] [phone] PCP - General NURSE PRACTITIONER 03/08/24
--- OUTSIDE RECORDS SUMMARY | 2024-06-11 15:34 | XMS_ITS | Encounter Summary ---
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 Gender Identity Not on file Sexual Orientation Not on file documented as of this encounter Plan of Treatment Not on file documented as of this encounter Procedures Procedure Name Priority Date/Time Associated Diagnosis Comments COMPREHENSIVE METABOLIC PANEL Routine 01/31/2024 TSH (OUTSIDE LAB) Routine 01/29/2024 COMPREHENSIVE METABOLIC PANEL Routine 11/06/2023 LIPID PANEL Routine 11/06/2023 LIPID PANEL Routine 11/06/2023 HEMOGLOBIN, GLYCOSYLATED Routine 11/06/2023 documented in this encounter Results * COMPREHENSIVE METABOLIC PANEL (01/31/2024) SODIUM S/P/B 139 POTASSIUM S/P/B 4.1 CO2 21 CHLORIDE S/P/B 102 GLUCOSE 165 mg/dL CALCIUM S/P/B 9.6 BUN 27 CREATININE S/P/B 1.29 0.7 - 1.3 GFR ESTIMATE 57 ALKALINE PHOSPHATASE S/P/B 65 ALT 19 AST 21 BILIRUBIN TOTAL S/P/B 0.4 ALBUMIN S/P/B 4.2 3.5 - 5.0 TOTAL PROTEIN S/P/B 7.0 GLOBULIN 2.8 01/31/2024 Default History Genericprovider LABORATORY Final Result * TSH (OUTSIDE LAB) (01/29/2024) Pathologist [facility] TSH 2.490 01/29/2024 Default History Genericprovider LAB-OUTSIDE/ABST RACTED Final Result * LIPID PANEL (11/06/2023) [facility] CHOLESTEROL 174 HDL 39 TRIGLYCERIDES 187 LDL (CALCULATED) 102 11/06/2023 Default History Genericprovider LABORATORY Final Result * HEMOGLOBIN, GLYCOSYLATED (11/06/2023) Pathologist [facility] HGB A1C 9.1 % 11/06/2023 Default History Genericprovider LABORATORY Final Result * COMPREHENSIVE METABOLIC PANEL (11/06/2023) [facility] SODIUM S/P/B 138 POTASSIUM S/P/B 3.8 CO2 24 CHLORIDE S/P/B 99 GLUCOSE 217 mg/dL CALCIUM S/P/B 10.6 BUN 18 CREATININE S/P/B 1.08 0.7 - 1.3 GFR ESTIMATE 71 ALKALINE PHOSPHATASE S/P/B 63 ALT 16 AST 16 BILIRUBIN TOTAL S/P/B 0.4 ALBUMIN S/P/B 4.5 3.5 - 5.0 TOTAL PROTEIN S/P/B 7.1 GLOBULIN 2.6 11/06/2023 Default History Genericprovider LABORATORY Final Result * LIPID PANEL (11/06/2023) CHOLESTEROL 174 HDL 39 TRIGLYCERIDES 187 LDL (CALCULATED) 101 11/06/2023 us Default History Genericprovider LABORATORY Final Result documented in this encounter Visit Diagnoses Not on filedocumented in this encounter Care Teams Wafer Polishing Worker Relationship Specialty Start Date End Date Natalie Chacko PA-C [address] [place] [phone] PCP - General NURSE PRACTITIONER 03/08/24 documented as of this encounter
--- OUTSIDE RECORDS SUMMARY | 2024-06-11 15:35 | XMS_ITS | Data Portability ---
Author Organization [place] - [facility] [employer], Main Office Address [address] [place] [address] Care Team Providers Care Electronic Equipment Repairmen Name Role Phone WILLIAN WAGNER Primary Care Provider WILLIAN WAGNER Referring Provider [phone] Assessment No assessment recorded. Plan of Treatment Reminders Order Date Submit Date Provider Last Modified By Organization Details Last Modified Time Details Appointments None recorded. Lab lipid panel, serum [address] (Lab), [address] [place], [address], 4 10:01:11 TSH, serum or plasma 2023 024 [facility] (Lab), [address] [place], [address], 4 22:38:15 PSA, serum or plasma 2023 024 [facility] (Lab), [address] [place], [address], 4 22:38:15 CMP, serum or plasma 2023 024 [facility] (Lab), [address] [place], [address], 4 22:38:14 unlisted lab - CBC study [address] (Lab), [address] [place], [address], 4 10:01:12 glycohemogl obin, total, blood [email or web address] [place] [address] ([facility]), [address] [place], [address], 4 10:01:12 CBC w/ auto diff 2022 023 [facility], [address] [place], [address], 3 20:01:05 BMP, serum or plasma 2022 023 [facility], [address] [place], [address], 3 20:40:47 glycohemogl obin, total, blood 2022 023 [facility], [address] [place], [address], 3 21:33:20 lipid panel, serum 2022 023 [facility], [address] [place], [address], 3 20:40:52 hepatic function panel, serum 2022 023 [facility], [address] [place], [address], 3 20:40:56 CBC w/ auto diff 2022 023 [facility], [address] [place], [address], 3 20:23:34 BMP, serum or plasma 2022 023 [facility], [address] [place], [address], 3 21:09:57 glycohemogl obin, total, blood 2022 023 [facility], [address] [place], [address], 3 21:39:55 lipid panel, serum 2022 023 [facility], [address] [place], [address], 3 21:10:01 hepatic function panel, serum 2022 023 [facility], [address] [place], [address], 3 21:10:04 Referral None recorded. Procedures None recorded. Surgeries None recorded. Imaging XR, chest 2023 024 [facility], [address] [place] [address], [address], 4 18:34:39 electrocard iogram 2022 023 [email or web address] [facility] [address], [place], [address], 3 13:14:02 Medication Orders prednisone 20 mg tablet 2023 024 [facility], [address] [place] [address], [address], 4 14:12:33 terazosin 10 mg capsule 2023 024 [facility], [address] [place] [address], [address], 4 17:24:29 Virtussin AC 10 mg-100 mg/5 mL oral liquid 2023 024 [facility], [address] [place] [address], [address], 4 17:27:12 prednisone 20 mg tablet 2022 023 AILEEN [facility], [address] [place], [address], 3 12:25:08 pantoprazol e 40 mg tablet,james yed release 2022 023 [email or web address] [facility], [address] [place], [address], 21:25:51 Patient TargetsNo targets recorded. Patient Instructions Encounter Date Encounter Id Patient Instructions Last Modified By Organization Details Last Modified Time 07/21/2023 [id number] dementia rating scale-2* Not available 07/24/2023 08:50:05 multi-dimensiona l health assessment questionnaire* [email or web address] Not available 07/24/2023 08:50:09 care plan* Not available 07/20 17:24:22 advance care planning: care instructions Not available 07/21/2023 17:24:21 advance directiv es: care instructions Not available 07/21/2023 17:24:22 [place] Advance Directives Not available 07/21/2023 17:24:21 Personalized a lt Plan and Screening Recommendations Advance Directives - Do you have one? No Advance Directives - Do we have your advance directive on file in your health record? Primary Prevention/Interven tion (prevents or decreases the chance of common diseases from occurring) Smoking Risk: Non Smoker Alcohol Misuse Screening: Negative Weight: Appropriate Overwei ght Physical activity: Appropriate physical activity Nutrition: Good Average Fall Risk (screened today): Low Vaccines Pneumococcal: Ordered Recommended today Recommended today, but you have declined No further needed Influenza: Your next one in the fall of this year Chronic Disease Risks Stroke: Low Risk Intermediate Risk I have no recommendations Act fredrick diagnosis, Continue current treatment plan Heart Attack: Low risk Intermediate Risk I have no recommendations Act fredrick diagnosis, Continue current treatment plan Clogging of the Arteries: Low risk Intermediate Risk I have no recommendations Act fredrick diagnosis, Continue current treatment plan Diabetes: High Risk Active diagnosis, Continue current treatment plan Secondary Prevention/Interven tion (detects treatable diseases before they may cause symptoms, disability, or ) Prostate Cancer Screening: Colon Cancer Screening: No screening necessary Date Screening Last Performed: Eye Disease Screening: Ordered Recommended today Dementia Risk: Low Depression Screening: Negative Active diagnosis, Continue current treatment plan Not available 07/21/2023 17:18:56 Reason for Referral None Reported. Results Created Date Observation Date Name Description Value Unit Range Abnormal Flag Note LastModifiedBy Organization Detail LastModifiedTime 09/08/19 23 09/07/2022 CBC/C OMPLE TE BLD COUNT W/DIF F white blood cells 5.0 x10'3 /uL 4.2-10 .8 Not Available [facility] (Lab) [address] [place], [address], 09/07/2022 20:23:33 09/08/19 23 09/07/2022 CBC/C OMPLE TE BLD COUNT W/DIF F red blood cells 3.86 x10'6 /uL 4.10-5 .80 low Not Available [facility] (Lab) [address] [place], [address], 09/07/2022 20:23:33 09/08/19 23 09/07/2022 CBC/C OMPLE TE BLD COUNT W/DIF F hemoglobin 11.3 g/dL 13.2-1 7.0 low Not Available [facility] (Lab) [address] [place], [address], 09/07/2022 20:23:33 09/08/19 23 09/07/2022 CBC/C OMPLE TE BLD COUNT W/DIF F hematocrit 35.5 % 39.3-5 0.0 low Not Available [facility] (Lab) [address] [place], [address], 09/07/2022 20:23:33 09/08/19 23 09/07/2022 CBC/C OMPLE TE BLD COUNT W/DIF F mean red cell volume 92.0 fL 80.0-9 7.0 Not Available [facility] (Lab) [address] [facility] [place], [address], 09/07/2022 20:23:33 09/08/19 23 09/07/2022 CBC/C OMPLE TE BLD COUNT W/DIF F mean red cell hemoglobin 29.3 pg 27.0-3 3.0 Not Available [facility] (Lab) [address] [facility] [place], [address], 09/07/2022 20:23:33 09/08/19 23 09/07/2022 CBC/C OMPLE TE BLD COUNT W/DIF F mean RBC HGB concentratio n 31.8 g/dL 31.0-3 6.0 Not Available [facility] (Lab) [address] [place], [address], 09/07/2022 20:23:33 09/08/19 23 09/07/2022 CBC/C OMPLE TE BLD COUNT W/DIF F red cell distribution width 12.9 % 11.8-1 5.5 Not Available [facility] (Lab) [address] [place], [address], 09/07/2022 20:23:33 09/08/19 23 09/07/2022 CBC/C OMPLE TE BLD COUNT W/DIF F platelets 247 x10'3 /uL 150-40 0 Not Available [facility] (Lab) [address] [place], [address], 09/07/2022 20:23:33 09/08/19 23 09/07/2022 CBC/C OMPLE TE BLD COUNT W/DIF F mean platelet volume 9.9 fL 9.0-12 .4 Not Available [facility] (Lab) [address] [place], [address], 09/07/2022 20:23:33 09/08/19 23 09/07/2022 CBC/C OMPLE TE BLD COUNT W/DIF F neutrophils 46.3 % 39.0-7 2.0 Not Available [facility] (Lab) [address] [place], [address], 09/07/2022 20:23:33 09/08/19 23 09/07/2022 CBC/C OMPLE TE BLD COUNT W/DIF F lymphocytes 40.3 % 16.0-4 7.0 Not Available [facility] (Lab) [address] [place], [address], 09/07/2022 20:23:33 09/08/19 23 09/07/2022 CBC/C OMPLE TE BLD COUNT W/DIF F monocytes 8.2 % 5.0-12 .0 Not Available [facility] (Lab) [address] [place], [address], 09/07/2022 20:23:33 09/08/19 23 09/07/2022 CBC/C OMPLE TE BLD COUNT W/DIF F eosinophils 4.4 % 1.0-7. 0 Not Available [facility] (Lab) [address] [place], [address], 09/07/2022 20:23:33 09/08/19 23 09/07/2022 CBC/C OMPLE TE BLD COUNT W/DIF F basophils 0.4 % 0.0-2. 0 Not Available [facility] (Lab) [address] [place], [address], 09/07/2022 20:23:33 09/08/19 23 09/07/2022 CBC/C OMPLE TE BLD COUNT W/DIF F immature granulocytes 0.4 % 0.00-0 .50 Not Available [facility] (Lab) [address] [place], [address], 09/07/2022 20:23:33 09/08/19 23 09/07/2022 CBC/C OMPLE TE BLD COUNT W/DIF F neutrophils, absolute count 2.31 x10'3 /uL 1.5-8. 0 Not Available [facility] (Lab) [address] [place], [address], 09/07/2022 20:23:33 09/08/19 23 09/07/2022 CBC/C OMPLE TE BLD COUNT W/DIF F lymphocytes, absolute count 2.01 x10'3 /uL 1.07-3 .43 Not Available [facility] (Lab) [address] [place], [address], 09/07/2022 20:23:33 09/08/19 23 09/07/2022 CBC/C OMPLE TE BLD COUNT W/DIF F monocytes, absolute count 0.41 x10'3 /uL 0.29-0 .99 Not Available [facility] (Lab) [address] [place], [address], 09/07/2022 20:23:33 09/08/19 23 09/07/2022 CBC/C OMPLE TE BLD COUNT W/DIF F eosinophils, absolute count 0.22 x10'3 /uL 0.02-0 .53 Not Available [facility] (Lab) [address] [place], [address], 09/07/2022 20:23:33 09/08/19 23 09/07/2022 CBC/C OMPLE TE BLD COUNT W/DIF F basophils, absolute count 0.02 x10'3 /uL 0.01-0 .08 Not Available [facility] (Lab) [address] [place], [address], 09/07/2022 20:23:33 09/08/19 23 09/07/2022 CBC/C OMPLE TE BLD COUNT W/DIF F immature granulocytes ,absolute 0.02 x10'3 /uL 0.00-0 .05 Not Available [facility] (Lab) [address] [place], [address], 09/07/2022 20:23:33 09/08/19 23 09/07/2022 CBC/C OMPLE TE BLD COUNT W/DIF F nucleated red blood cells 0.0 % -0 Not Available [facility] (Lab) [address] [place], [address], 09/07/2022 20:23:33 09/08/19 23 09/07/2022 CBC/C OMPLE TE BLD COUNT W/DIF F NRBC# 0.00 x10'3 /uL Not Available [facility] (Lab) [address] [place], [address], 09/07/2022 20:23:33 09/08/19 23 09/07/2022 BASIC METAB OLIC PANEL sodium 139 mmol/ L 137-14 5 Not Available [facility] (Lab) [address] [place], [address], 09/07/2022 21:09:57 09/08/19 23 09/07/2022 BASIC METAB OLIC PANEL potassium 4.2 mmol/ L 3.5-5. 1 Not Available [facility] (Lab) [address] [place], [address], 09/07/2022 21:09:57 09/08/19 23 09/07/2022 BASIC METAB OLIC PANEL chloride 104 mmol/ L 98-107 Not Available [facility] (Lab) [address] [place], [address], 09/07/2022 21:09:57 09/08/19 23 09/07/2022 BASIC METAB OLIC PANEL carbon dioxide 24 mmol/ L 22-30 Not Available [facility] (Lab) [address] [place], [address], 09/07/2022 21:09:57 09/08/19 23 09/07/2022 BASIC METAB OLIC PANEL anion gap 15.2 mmol/ L 14-22 Not Available [facility] (Lab) [address] [place], [address], 09/07/2022 21:09:57 09/08/19 23 09/07/2022 BASIC METAB OLIC PANEL glucose 149 mg/dL 70-99 high Not Available [facility] (Lab) [address] [place], [address], 09/07/2022 21:09:57 09/08/19 23 09/07/2022 BASIC METAB OLIC PANEL BUN 27 mg/dL 8-19 high Not Available [facility] (Lab) [address] [place], [address], 09/07/2022 21:09:57 09/08/19 23 09/07/2022 BASIC METAB OLIC PANEL creatinine 0.92 mg/dL 0.66-1 .25 Not Available [facility] (Lab) [address] [place], [address], 09/07/2022 21:09:57 09/08/19 23 09/07/2022 BASIC METAB OLIC PANEL GFR >60 Refer ence Range : [place] GFR Healt hy Adult : >60 mL/mi n/1.7 3 m2 Chron ic Kidne y Disea se: 15-60 mL/mi n/1.7 3 m2 Kidne y Failu re: <15/m L/min /1.73 m2 www.n iddk. nih.g ov The MDRD study equat ion has not been valid ated in child rosa <18 years of age; pregn ant women ; the elder ly >85 years of age; or in some racia l or ethni c subgr oups, such as Hispa nics. Outsi de the valid ated coretta eters , estim ated GFR is less accur ate, requi ring clini nir judgm ent on a case- by-ca se basis . Clini nir inter preta tion for other races and ages must be made by the clini ramy. The MDRD study equat ion has not been valid ated for the evalu ation of serum creat inine relat ed to nutri gilbert l statu s or medic ation usage . For perso ns <18 years of age, a pedia tric GFR calcu lator is avail able on the [facility] websi te: https ://magdi brock.maddie rayo.o carlos/pr ofess ional s/kdo qi/gf r_cal culat or Not Available [facility] (Lab) [address] [place], [address], 09/07/2022 21:09:57 09/08/19 23 09/07/2022 BASIC METAB OLIC PANEL calcium 9.4 mg/dL 8.4-10 .2 Not Available [facility] (Lab) [address] [place], [address], 09/07/2022 21:09:57 09/08/19 23 09/07/2022 LIPID PANEL cholesterol 148 mg/dL 140-19 9 NIH KAIMLAH NSUS RECOM MENDA TION FOR ARIAN STERO L: ADULT CHILD LOW RISK: <200 <170 BORDE RLINE : <200- 239 ----- HIGH RISK: >240 >200 Not Available [facility] (Lab) [address] [place], [address], 09/07/2022 21:10:01 09/08/19 23 09/07/2022 LIPID PANEL triglyceride s 106 mg/dL 0-150 NIH KAMILAH NSUS REPOR T RECOM MENDA TION FOR TRIGL YCERI BENJA: ADULT CHILD LOW RISK: <150 ----- BODER LINE: 150-1 99 ----- HIGH RISK: >200 ----- Not Available [facility] (Lab) [address] [place], [address], 09/07/2022 21:10:01 09/08/19 23 09/07/2022 LIPID PANEL HDL cholesterol 35 mg/dL 40- low Not Available [facility] (Lab) [address] [place], [address], 09/07/2022 21:10:01 09/08/19 23 09/07/2022 LIPID PANEL LDL cholesterol, calculated 92 mg/dL 0-130 NIH KAMILAH NSUS REPOR T RECOM MENDA TIONS FOR LDL: ADULT CHILD LOW RISK <130 <110 (OPTI MAL LDL) <100 ----- BORDE RLINE : 130-1 59 ----- HIGH RISK: >160 >130 A TRIGL YCERI DE RESUL T >400 INVAL IDATE S THE CALCU LATIO N FOR LDL FRACT IONAT ION - THE LDL RESUL T WILL NOT BE REPOR ISAAK. Not Available [facility] (Lab) [address] [place], [address], 09/07/2022 21:10:01 09/08/19 23 09/07/2022 HEPAT IC/LI TRINITY PANEL alkaline phosphatase 55 U/L 38-126 Not Available [facility] (Lab) [address] [place], [address], 09/07/2022 21:10:04 09/08/19 23 09/07/2022 HEPAT IC/LI TRINITY PANEL alanine aminotransfe rase 19 U/L 0-50 Not Available [facility] (Lab) [address] [place], [address], 09/07/2022 21:10:04 09/08/19 23 09/07/2022 HEPAT IC/LI TRINITY PANEL aspartate aminotransfe rase 23 U/L 15-46 Not Available [facility] (Lab) [address] [place], [address], 09/07/2022 21:10:04 09/08/19 23 09/07/2022 HEPAT IC/LI TRINITY PANEL bilirubin, total 0.50 mg/dL 0.20-1 .30 Not Available [facility] (Lab) [address] [place], [address], 09/07/2022 21:10:04 09/08/19 23 09/07/2022 HEPAT IC/LI TRINITY PANEL bilirubin, conjugated (direct) 0.00 mg/dL 0.00-0 .30 Not Available [facility] (Lab) [address] [place], [address], 09/07/2022 21:10:04 09/08/19 23 09/07/2022 HEPAT IC/LI TRINITY PANEL biliurubin,u ncong. (indirect) 0.40 mg/dL 0.00-1 .1 Not Available [facility] (Lab) [address] [place], [address], 09/07/2022 21:10:04 09/08/19 23 09/07/2022 HEPAT IC/LI TRINITY PANEL total protein 6.9 g/dL 6.3-8. 2 Not Available [facility] (Lab) [address] [place], [address], 09/07/2022 21:10:04 09/08/19 23 09/07/2022 HEPAT IC/LI TRINITY PANEL albumin 3.7 g/dL 3.0-4. 4 Not Available [facility] (Lab) [address] [place], [address], 09/07/2022 21:10:04 09/08/19 23 09/07/2022 HEPAT IC/LI TRINITY PANEL globulin 3.2 g/dL 2.6-4. 2 Not Available [facility] (Lab) [address] [place], [address], 09/07/2022 21:10:04 09/08/19 23 09/07/2022 HEPAT IC/LI TRINITY PANEL A/G ratio 1.2 ratio 1.0-2. 0 Not Available [facility] (Lab) [address] [place], [address], 09/07/2022 21:10:04 09/08/19 23 09/07/2022 HEMOG LOBIN A1C HA1C 8.5 % 4.0-6. 0 high Diabe anup Scree lydia Crite susan: <5.7% Consi stent with absen ce of diabe anup 5.7-6 .4% Consi stent with incre ased risk for diabe anup (pred iabet es) >OR=6 .5% Consi stent with diabe anup REFER ENCE: Diabe anup Care 2015, 39(Moran ppl.1 ):s13 -s22 Not Available [facility] (Lab) [address] [place], [address], 09/07/2022 21:39:55 01/13/2001/12/2023 CBC/C OMPLE TE BLD COUNT W/DIF F white blood cells 4.8 x10'3 /uL 4.2-10 .8 Not Available [facility] (Lab) [address] [place], [address], 01/12/2023 20:01:05 01/13/2001/12/2023 CBC/C OMPLE TE BLD COUNT W/DIF F red blood cells 3.83 x10'6 /uL 4.10-5 .80 low Not Available [facility] (Lab) [address] [place], [address], 01/12/2023 20:01:05 01/13/20 23 01/12/2023 CBC/C OMPLE TE BLD COUNT W/DIF F hemoglobin 11.5 g/dL 13.2-1 7.0 low Not Available [facility] (Lab) [address] [place], [address], 01/12/2023 20:01:05 01/13/20 23 01/12/2023 CBC/C OMPLE TE BLD COUNT W/DIF F hematocrit 35.5 % 39.3-5 0.0 low Not Available [facility] (Lab) [address] [place], [address], 01/12/2023 20:01:05 01/13/20 23 01/12/2023 CBC/C OMPLE TE BLD COUNT W/DIF F mean red cell volume 92.7 fL 80.0-9 7.0 Not Available [facility] (Lab) [address] [place], [address], 01/12/2023 20:01:05 01/13/2001/12/2023 CBC/C OMPLE TE BLD COUNT W/DIF F mean red cell hemoglobin 30.0 pg 27.0-3 3.0 Not Available [facility] (Lab) [address] [place], [address], 01/12/2023 20:01:05 01/13/2001/12/2023 CBC/C OMPLE TE BLD COUNT W/DIF F mean RBC HGB concentratio n 32.4 g/dL 31.0-3 6.0 Not Available [facility] (Lab) [address] [place], [address], 01/12/2023 20:01:05 01/13/2001/12/2023 CBC/C OMPLE TE BLD COUNT W/DIF F red cell distribution width 12.6 % 11.8-1 5.5 Not Available [facility] (Lab) [address] [place], [address], 01/12/2023 20:01:05 01/13/2001/12/2023 CBC/C OMPLE TE BLD COUNT W/DIF F platelets 229 x10'3 /uL 150-40 0 Not Available [facility] (Lab) [address] [place], [address], 01/12/2023 20:01:05 01/13/2001/12/2023 CBC/C OMPLE TE BLD COUNT W/DIF F mean platelet volume 10.4 fL 9.0-12 .4 Not Available [facility] (Lab) [address] [place], [address], 01/12/2023 20:01:05 01/13/2001/12/2023 CBC/C OMPLE TE BLD COUNT W/DIF F neutrophils 42.8 % 39.0-7 2.0 Not Available [facility] (Lab) [address] [place], [address], 01/12/2023 20:01:05 01/13/2001/12/2023 CBC/C OMPLE TE BLD COUNT W/DIF F lymphocytes 43.6 % 16.0-4 7.0 Not Available [facility] (Lab) [address] [place], [address], 01/12/2023 20:01:05 01/13/2001/12/2023 CBC/C OMPLE TE BLD COUNT W/DIF F monocytes 8.4 % 5.0-12 .0 Not Available [facility] (Lab) [address] [place], [address], 01/12/2023 20:01:05 01/13/2001/12/2023 CBC/C OMPLE TE BLD COUNT W/DIF F eosinophils 4.4 % 1.0-7. 0 Not Available [facility] (Lab) [address] [place], [address], 01/12/2023 20:01:05 01/13/2001/12/2023 CBC/C OMPLE TE BLD COUNT W/DIF F basophils 0.6 % 0.0-2. 0 Not Available [facility] (Lab) [address] [place], [address], 01/12/2023 20:01:05 01/13/2001/12/2023 CBC/C OMPLE TE BLD COUNT W/DIF F immature granulocytes 0.2 % 0.00-0 .50 Not Available [facility] (Lab) [address] [place], [address], 01/12/2023 20:01:05 01/13/2001/12/2023 CBC/C OMPLE TE BLD COUNT W/DIF F neutrophils, absolute count 2.05 x10'3 /uL 1.5-8. 0 Not Available [facility] (Lab) [address] [place], [address], 01/12/2023 20:01:05 01/13/20 23 01/12/2023 CBC/C OMPLE TE BLD COUNT W/DIF F lymphocytes, absolute count 2.09 x10'3 /uL 1.07-3 .43 Not Available [facility] (Lab) [address] [place], [address], 01/12/2023 20:01:05 01/13/2001/12/2023 CBC/C OMPLE TE BLD COUNT W/DIF F monocytes, absolute count 0.40 x10'3 /uL 0.29-0 .99 Not Available [facility] (Lab) [address] [place], [address], 01/12/2023 20:01:05 01/13/20 23 01/12/2023 CBC/C OMPLE TE BLD COUNT W/DIF F eosinophils, absolute count 0.21 x10'3 /uL 0.02-0 .53 Not Available [facility] (Lab) [address] [place], [address], 01/12/2023 20:01:05 01/13/2001/12/2023 CBC/C OMPLE TE BLD COUNT W/DIF F basophils, absolute count 0.03 x10'3 /uL 0.01-0 .08 Not Available [facility] (Lab) [address] [place], [address], 01/12/2023 20:01:05 01/13/2001/12/2023 CBC/C OMPLE TE BLD COUNT W/DIF F immature granulocytes ,absolute 0.01 x10'3 /uL 0.00-0 .05 Not Available [facility] (Lab) [address] [place], [address], 01/12/2023 20:01:05 01/13/20 23 01/12/2023 CBC/C OMPLE TE BLD COUNT W/DIF F nucleated red blood cells 0.0 % -0 Not Available [facility] (Lab) [address] [place], [address], 01/12/2023 20:01:05 01/13/20 23 01/12/2023 CBC/C OMPLE TE BLD COUNT W/DIF F NRBC# 0.00 x10'3 /uL Not Available [facility] (Lab) [address] [place], [address], 01/12/2023 20:01:05 01/13/2001/12/2023 BASIC METAB OLIC PANEL sodium 131 mmol/ L 137-14 5 low Not Available [facility] (Lab) [address] [place], [address], 01/12/2023 20:40:47 01/13/20 23 01/12/2023 BASIC METAB OLIC PANEL potassium 4.0 mmol/ L 3.5-5. 1 Not Available [facility] (Lab) [address] [place], [address], 01/12/2023 20:40:47 01/13/20 23 01/12/2023 BASIC METAB OLIC PANEL chloride 100 mmol/ L 98-107 Not Available [facility] (Lab) [address] [place], [address], 01/12/2023 20:40:47 01/13/20 23 01/12/2023 BASIC METAB OLIC PANEL carbon dioxide 30 mmol/ L 22-30 Not Available [facility] (Lab) [address] [place], [address], 01/12/2023 20:40:47 01/13/20 23 01/12/2023 BASIC METAB OLIC PANEL anion gap 5.0 mmol/ L 14-22 low Not Available [facility] (Lab) [address] [place], [address], 01/12/2023 20:40:47 01/13/20 23 01/12/2023 BASIC METAB OLIC PANEL glucose 211 mg/dL 70-99 high Not Available [facility] (Lab) [address] [place], [address], 01/12/2023 20:40:47 01/13/2001/12/2023 BASIC METAB OLIC PANEL BUN 23 mg/dL 8-19 high Not Available [facility] (Lab) [address] [place], [address], 01/12/2023 20:40:47 01/13/2001/12/2023 BASIC METAB OLIC PANEL creatinine 0.92 mg/dL 0.66-1 .25 Not Available [facility] (Lab) [address] [place], [address], 01/12/2023 20:40:47 01/13/2001/12/2023 BASIC METAB OLIC PANEL GFR >60 Refer ence Range : [place] GFR Healt hy Adult : >60 mL/mi n/1.7 3 m2 Chron ic Kidne y Disea se: 15-60 mL/mi n/1.7 3 m2 Kidne y Failu re: <15/m L/min /1.73 m2 www.n iddk. nih.g ov The MDRD study equat ion has not been valid ated in child rosa <18 years of age; pregn ant women ; the elder ly >85 years of age; or in some racia l or ethni c subgr oups, such as Hispa nics. Outsi de the valid ated coretta eters , estim ated GFR is less accur ate, requi ring clini nir judgm ent on a case- by-ca se basis . Clini nir inter preta tion for other races and ages must be made by the clini ramy. The MDRD study equat ion has not been valid ated for the evalu ation of serum creat inine relat ed to nutri gilbert l statu s or medic ation usage . For perso ns <18 years of age, a pedia tric GFR calcu latlaurel is avail able on the [facility] websi te: https ://ww w.kid girma.o rg/pr ofess ional s/kdo qi/gf r_cal culat or Not Available [facility] (Lab) [address] [place], [address], 01/12/2023 20:40:47 01/13/2001/12/2023 BASIC METAB OLIC PANEL calcium 9.4 mg/dL 8.4-10 .2 Not Available [facility] (Lab) [address] [place], [address], 01/12/2023 20:40:47 01/13/2001/12/2023 LIPID PANEL cholesterol 171 mg/dL 140-19 9 [facility] KAMILAH NSUS RECOM MENDA TION FOR ARIAN STERO L: ADULT CHILD LOW RISK: <200 <170 BORDE RLINE : <200- 239 ----- HIGH RISK: >240 >200 Not Available [facility] (Lab) [address] [place], [address], 01/12/2023 20:42:49 01/13/2001/12/2023 LIPID PANEL triglyceride s 172 mg/dL 0-150 high NIH KAMILAH NSUS REPOR T RECOM MENDA TION FOR TRIGL YCERI BENJA: ADULT CHILD LOW RISK: <150 ----- BODER LINE: 150-1 99 ----- HIGH RISK: >200 ----- Not Available [facility] (Lab) [address] [place], [address], 01/12/2023 20:42:49 01/13/2001/12/2023 LIPID PANEL HDL cholesterol 33 mg/dL 40- low Not Available [facility] (Lab) [address] [place], [address], 01/12/2023 20:42:49 01/13/2001/12/2023 LIPID PANEL LDL cholesterol, calculated 104 mg/dL 0-130 NIH KAMILAH NSUS REPOR T RECOM MENDA TIONS FOR LDL: ADULT CHILD LOW RISK <130 <110 (OPTI MAL LDL) <100 ----- BORDE RLINE : 130-1 59 ----- HIGH RISK: >160 >130 A TRIGL YCERI DE RESUL T >400 INVAL IDATE S THE CALCU LATIO N FOR LDL FRACT IONAT ION - THE LDL RESUL T WILL NOT BE REPOR ISAAK. Not Available [facility] (Lab) [address] [place], [address], 01/12/2023 20:42:49 01/13/2001/12/2023 HEPAT IC/LI TRINITY PANEL alkaline phosphatase 58 U/L 38-126 Not Available [facility] (Lab) [address] [place], [address], 01/12/2023 20:40:56 01/13/2001/12/2023 HEPAT IC/LI TRINITY PANEL alanine aminotransfe rase 19 U/L 0-50 Not Available [facility] (Lab) [address] [place], [address], 01/12/2023 20:40:56 01/13/2001/12/2023 HEPAT IC/LI TRINITY PANEL aspartate aminotransfe rase 21 U/L 15-46 Not Available [facility] (Lab) [address] [place], [address], 01/12/2023 20:40:56 01/13/2001/12/2023 HEPAT IC/LI TRINITY PANEL bilirubin, total 0.60 mg/dL 0.20-1 .30 Not Available [facility] (Lab) [address] [place], [address], 01/12/2023 20:40:56 01/13/2001/12/2023 HEPAT IC/LI TRINITY PANEL bilirubin, conjugated (direct) 0.00 mg/dL 0.00-0 .30 Not Available [facility] (Lab) [address] [place], [address], 01/12/2023 20:40:56 01/13/2001/12/2023 HEPAT IC/LI TRINITY PANEL biliurubin,u ncong. (indirect) 0.40 mg/dL 0.00-1 .1 Not Available [facility] (Lab) [address] [place], [address], 01/12/2023 20:40:56 01/13/2001/12/2023 HEPAT IC/LI TRINITY PANEL total protein 6.9 g/dL 6.3-8. 2 Not Available [facility] (Lab) [address] [place], [address], 01/12/2023 20:40:56 01/13/2001/12/2023 HEPAT IC/LI TRINITY PANEL albumin 4.0 g/dL 3.0-4. 4 Not Available [facility] (Lab) [address] [place], [address], 01/12/2023 20:40:56 01/13/20 23 01/12/2023 HEPAT IC/LI TRINITY PANEL globulin 2.9 g/dL 2.6-4. 2 Not Available [facility] (Lab) [address] [place], [address], 01/12/2023 20:40:56 01/13/20 23 01/12/2023 HEPAT IC/LI TRINITY PANEL A/G ratio 1.4 ratio 1.0-2. 0 Not Available [facility] (Lab) [address] [place], [address], 01/12/2023 20:40:56 01/13/20 23 01/12/2023 HEMOG LOBIN A1C HA1C 8.9 % 4.0-6. 0 high Diabe anup Scree lydia Crite susan: <5.7% Consi stent with absen ce of diabe anup 5.7-6 .4% Consi stent with incre ased risk for diabe anup (pred iabet es) >OR=6 .5% Consi stent with diabe anup REFER ENCE: Diabe anup Care 2016, 39(Moran ppl.1 ):s13 -s22 Not Available [facility] ([facility]) [address] [facility], [place], [address], 01/12/2023 21:33:20 12/16/19 23 elect rocar diogr am No observ ation record ed. [email or web address] [facility] [address], [place], [address], 12/15/2022 13:12:40 09/01/19 24 09/01/2023 XR, chest No observ ation record ed. [place] [address], [place], [address], 09/27/2023 09:32:01 Result Notes None recorded. Problems Name Problem SNOMED Code Status Onset Date Resolution Date Notes Provider Name and Address Organization Details Recorded Time Eczema 72438392 Active 2022 Willian Wagner MD [address] [facility], [address], [address] , [employer] 3 15:47:23 Chest pain 74477539 Active 2022 Willian Wagner MD [address] [facility], [facility] [address], [place], [address] , [employer] 3 12:48:08 Gastroesop hageal reflux disease without esophagiti s 745733662 Active 2022 Willian Wagner MD [address], [facility] [address], [place], [address] , [employer] [facility] [employer] [facility] 3 13:10:54 Dysfunctio n of bilateral eustachian tubes 8836056117606 100 Active 2022 Willian Wagner MD [address], [address], [place], [address] , [place] [facility] 3 12:23:29 Pain in right hand 9638921421184 09 Active 2023 MIKE Lazaro [address], [address], [place], [address] , [place] [employer] [facility] 4 17:22:23 Cough 49556124 Active 2023 MIKE Lazaro [address], [address], [place], [address] , [employer] S [employer] 4 14:06:50 History of right total knee replacemen t 7175539473916 102 Active 2020 Not Available [facility] 3 04:54:08 History of left total knee replacemen t 7578175240273 105 Active 2020 Not Available [facility] 3 04:54:08 Acquired trigger finger 7744787 Active Not Available [facility] 3 04:54:08 Pain in throat 229265008 Active Not Available [facility] 3 04:54:08 Radiothera py follow-up 948814459 Active Not Available [facility] 3 04:54:08 Partial thickness rotator cuff tear 609621820 Active 2020 Not Available [facility] 3 04:54:08 Gastroesop hageal reflux disease 042433816 Active Not Available [facility] 3 04:54:08 Osteoarthr itis of knee 848967005 Active Not Available [facility] 3 04:54:08 Adhesive capsulitis of right shoulder 5245285231902 09 Active 2020 Not Available [facility] 3 04:54:08 Knee pain Active Not Available [facility] 3 04:54:08 Elevated blood-pres sure reading without diagnosis of hypertensi on 413168719 Active Not Available [facility] 3 04:54:08 Osteoarthr itis 937321279 Active Not Available [facility] 3 04:54:09 Spasm 41758037 Active Not Available [facility] 3 04:54:09 Hyperlipid emia 88382680 Active Not Available [facility] 3 04:54:09 Essential hypertensi on 93774333 Active Not Available [facility] 3 04:54:09 Polyp of colon 19624874 Active 2021 Not Available [facility] 3 04:54:09 Diabetes mellitus 87724091 Active Not Available [facility] 3 04:54:09 Problem Notes None recorded. Procedures Surgical History Date Name Laterality Status Provider Name and Address Organization Details Recorded Time 07/21/19 24 Medicare Wellness CPT Code, subsequent completed Sharri Catalan RN [place] - [facility] 07/21/2023 16:51:17 07/14/19 22 colonoscopy completed Not Available [facility] 05/19/19 23 04:45:13 Knee Surgery completed Not Available [facility] 05/18/2022 04:45:13 Imaging Results Imaging Date Name Status LastModified by Organization Details LastModified Time 12/15/2022 electrocardiogram completed [email or web address] [facility] [address], [place], [address], 12/15/2022 13:12:40 09/01/2023 XR, chest completed [place] [address], [place], [address], 09/27/2023 09:32:01 Procedure Notes None recorded. Medical Equipment None Reported. Allergies No known drug allergies Medications Name Sig Start Date Stop Date Status Note LastModified by Organization Details LastModified Time losartan 50 mg tablet TAKE ONE TABLET BY MOUTH ONCE DAILY 02/23 completed Not Available Not Available Not Available amoxicillin 500 mg capsule 10/15 completed Not Available Not Available Not Available terazosin 5 mg capsule TAKE 1 CAPSULE BY MOUTH ONCE DAILY active Not Available Not Available No t Available atorvastati n 40 mg tablet Take 1 tablet every day by oral route. 06/05 completed Not Available Not Available Not Available diphenhydra mine 50 mg capsule Take 1 capsule every 4 hours by oral route as needed. 08/23 completed Not Available Not Available Not Available azithromyci n 250 mg tablet TAKE 2 TABLETS (500 MG) BY ORAL ROUTE ONCE DAILY FOR 1 DAY THEN 1 TABLET (250 MG) BY ORAL ROUTE ONCE DAILY FOR 4 DAYS active Not Available Not Available No t Available benzonatate 200 mg capsule Take 1 capsule 3 times a day by oral route as needed. 08/31 completed Not Available Not Available Not Available meloxicam 15 mg tablet Take 1 tablet every day by oral route. 05/09 completed Not Available Not Available Not Available lisinopril 20 mg tablet TAKE 1 TABLET BY MOUTH ONCE DAILY active Not Available Not Available No t Available prednisone 20 mg tablet 2 po qAM with food x 5 days(rahat [employer] in [place]) active Not Available Not Available No t Available acarbose 50 mg tablet TAKE 2 TABLETS BY MOUTH THREE TIMES DAILY active Not Available Not Available No t Available ciprofloxac in 250 mg tablet 1 po bid x 10 days active Not Available Not Available No t Available omeprazole 40 mg capsule,del ayed release Take 1 capsule every day by oral route. active Not Available Not Available No t Available triamcinolo ne acetonide 0.1 % topical cream APPLY THIN LAYER OF CREAM TOPICALLY TO AFFECTED AREA TWICE DAILY active Not Available Not Available No t Available amoxicillin 875 mg tablet Take 1 tablet every 12 hours by oral route for 7 days. active Not Available Not Available No t Available prednisolon e acetate 1 % eye drops,suspe nsion 07/26 completed Not Available Not Available Not Available terazosin 2 mg capsule TAKE 1 CAPSULE BY MOUTH ONCE DAILY 07/20 completed Not Available Not Available Not Available Kenalog 10 mg/mL suspension for injection In office injection administe red by the provider 03/[address] [facility]: 0003- 0494- 20 Not Available Not Available Not Available acarbose 100 mg tablet TAKE 1 TABLET BY MOUTH THREE TIMES DAILY 2023 active Not Available Not Available Not Avai lable doxycycline monohydrate 100 mg capsule Take 1 capsule twice a day by oral route for 7 days. active Not Available Not Available No t Available chlorpropam hadley 250 mg tablet Take 1 tablet twice a day by oral route. 06/05 completed Not Available Not Available Not Available triamcinolo ne acetonide 40 mg/mL suspension for injection Take 40 mg by injection route for 1 day. 08/23 completed Not Available Not Available Not Available hydrocodone 7.5 mg-acetamin ophen 325 mg tablet 07/26 completed Not Available Not Available Not Available pantoprazol e 40 mg tablet,james yed release TAKE 1 TABLET BY MOUTH ONCE DAILY active Not Available Not Available No t Available simvastatin 20 mg tablet active Not Available Not Available Not Available metformin 1,000 mg tablet active Not Available Not Available Not Available ranitidine 150 mg tablet Take 1 tablet twice a day by oral route. active Not Available Not Available No t Available lisinopril 10 mg tablet Take 1 tablet every day by oral route. 05/14 completed Not Available Not Available Not Available glimepiride 4 mg tablet TAKE 1 TABLET BY MOUTH TWICE DAILY WITH FOOD active Not Available Not Available No t Available Anaprox DS 550 mg tablet Take 1 tablet every 12 hours by oral route as needed. 01/15 completed Not Available Not Available Not Available nystatin-tr iamcinolone 100,000 unit/g-0.1 % topical cream active Not Available Not Available Not Available diclofenac sodium 75 mg tablet,james yed release TAKE 1 TABLET BY MOUTH TWICE DAILY NEEDED active Not Available Not Available No t Available hydrochloro thiazide 25 mg tablet TAKE 1 TABLET BY MOUTH ONCE DAILY active Not Available Not Available No t Available methylpredn isolone 4 mg tablets in a dose pack Take 1 package by oral route. active Not Available Not Available No t Available fluticasone propionate 50 mcg/actuati on nasal spray,suspe nsion USE 2 SPRAY(S) IN EACH NOSTRIL ONCE DAILY active Not Available Not Available No t Available terazosin 10 mg capsule Take 1 capsule by mouth once daily active Not Available Not Available No t Available acarbose 25 mg tablet Take 1 tablet 3 times a day by oral route for 90 days. active Not Available Not Available No t Available Cialis 10 mg tablet Take 1 tablet every day by oral route as needed. 07/02 completed Not Available Not Available Not Available hydrocodone 5 mg-acetamin ophen 300 mg tablet 01/15 completed Not Available Not Available Not Available lidocaine (PF) 10 mg/mL (1 %) injection solution In office injection administe red by the provider 03/29 completed [facility]: 0409- 4276- 17 Not Available Not Available Not Available Januvia 100 mg tablet Take 1 tablet every day by oral route. 06/05 completed Not Available Not Available Not Available gatifloxaci n 0.5 % eye drops 07/26 completed Not Available Not Available Not Available Xarelto 10 mg tablet 07/26 completed Not Available Not Available Not Available OneTouch Verio test strips USE 1 STRIP TO CHECK GLUCOSE ONCE DAILY active Not Available Not Available No t Available Prolensa 0.07 % eye drops 07/26 completed Not Available Not Available Not Available Virtussin AC 10 mg-100 mg/5 mL oral liquid TAKE 10 ML BY MOUTH EVERY 6 HOURS NEEDED FOR COUGH 2023 active Not Available Not Available Not Avai lable OneTouch Verio Flex Meter USE TO CHECK GLUCOSE ONCE DAILY 11/12 completed Not Available Not Available Not Available OneTouch Delica Plus Lancet 33 gauge USE 1 STRIP TO CHECK GLUCOSE ONCE DAILY 11/12 completed Not Available Not Available Not Available Vitals Date Recorded Body height Body mass index (BMI) Body weight Body temperature Heart rate Oxygen saturation Oxygen saturation in Arterial blood by Pulse oximetry Systolic blood pressure Diastolic blood pressure Provider Name and Address Organization Details Last Updated DateTime 3 157.48 cm 32.9 kg/m2 86756.6 3 g 98.1 [degF] 83 /min 96 % 96 % 132 mm[Hg] 70 mm[Hg] Isela Boss RN [facility] [employer] 3 15:53:01 Date Recorded Body height Body mass index (BMI) Body weight Body temperature Heart rate Oxygen saturation Oxygen saturation in Arterial blood by Pulse oximetry Systolic blood pressure Diastolic blood pressure Provider Name and Address Organization Details Last Updated DateTime 3 157.48 cm 33.5 kg/m2 04559.4 g 98 [degF] 92 /min 96 % 96 % 142 mm[Hg] 70 mm[Hg] Connie Costa RN [facility] [employer] [facility] 3 12:27:54 Date Recorded Body height Body mass index (BMI) Body weight Body temperature Heart rate Oxygen saturation Oxygen saturation in Arterial blood by Pulse oximetry Systolic blood pressure Diastolic blood pressure Provider Name and Address Organization Details Last Updated DateTime 3 157.48 cm 34 kg/m2 41942.1 8 g 97.8 [degF] 88 /min 97 % 97 % 140 mm[Hg] 86 mm[Hg] Isela Boss RN [facility] [employer] [facility] 3 12:12:21 Date Recorded Body height Body mass index (BMI) Body weight Body temperature Heart rate Oxygen saturation Oxygen saturation in Arterial blood by Pulse oximetry Systolic blood pressure Diastolic blood pressure Provider Name and Address Organization Details Last Updated DateTime 4 157.48 cm 32.9 kg/m2 61598.6 3 g 98.7 [degF] 91 /min 96 % 96 % 152 mm[Hg] 84 mm[Hg] Sharri Catalan RN [facility] [employer] [facility] 4 16:56:12 Date Recorded Body height Body mass index (BMI) Body weight Body temperature Heart rate Oxygen saturation Oxygen saturation in Arterial blood by Pulse oximetry Systolic blood pressure Diastolic blood pressure Provider Name and Address Organization Details Last Updated DateTime 4 157.48 cm 33.1 kg/m2 95093.2 2 g 100.2 [degF] 107 /min 96 % 96 % 140 mm[Hg] 72 mm[Hg] Sharri Catalan RN [facility] [employer] [facility] 4 14:01:46 Social History Question Answer Notes LastModified by Organizat ion Details LastModified Time Tobacco Smoking Status Never Smoker Not Available [facility] 05/18/2022 04:41:32 What Is Your Level Of Alcohol Consumption? None [id number] Information not available 05/18/2022 Are You Blind Or Do You Have Difficulty Seeing? No MIGRATION.[id number] Information not available 05/18/2022 What Is Your Level Of Caffeine Consumption? Occasional MIGRATION.[id number] Information not available 05/18/2022 How Much Tobacco Do You Chew? None MIGRATION.[id number] 0727 Information not available 05/18/2022 In The 14 Days Before Symptom Onset, Have You Had Close Contact With A Laboratory-confir med COVID-19 While That Case Was Ill? No MIGRATION.[id number] Information not available 05/18/2022 In The 14 Days Before Symptom Onset, Have You Had Close Contact With A Person Who Is Under Investigation For COVID-19 While That Person Was Ill? No MIGRATION.[id number] Information not available 05/18/2022 Are You Deaf Or Do You Have Serious Difficulty Hearing? No MIGRATION.482339 1276 Information not available 05/18/2022 What Type Of Diet Are You Following? REGULAR MIGRATION.902134 1442 Information not available 05/18/2022 Which Illicit Or Recreational Drugs Have You Used? No MIGRATION.[id number] 8233 Information not available 05/18/2022 Do You Or Have You Ever Used E-cigarettes Or Vape? Never Used Electronic Cigarettes MIGRATION.[id number] 9683 Information not available 05/18/2022 Are There Any Guns Present In Your Home? No MIGRATION.109615 5623 Information not available 05/18/2022 Do You Or Have You Ever Used Smokeless Tobacco? Never Used Smokeless Tobacco MIGRATION.954834 9137 Information not available 05/18/2022 How Much Tobacco Do You Smoke? No MIGRATION.178294 4362 Information not available 05/18/2022 Do You Feel Stressed (tense, Restless, Nervous, Or Anxious, Or Unable To Sleep At Night)? [id number] MIGRATION.[id number] 2476 Information not available 05/18/2022 Do You Use Any Illicit Or Recreational Drugs? No MIGRATION.361357 8652 Information not available 05/18/2022 Has Tobacco Cessation Counseling Been Provided? No MIGRATION.934239 5163 Information not available 05/18/2022 Do You Have Any Dietary Restrictions? No MIGRATION.668013 5878 Information not available 05/18/2022 Do You Or Have You Ever Used Any Other Forms Of Tobacco Or Nicotine? No MIGRATION.315098 4803 Information not available 05/18/2022 Sex: Male Functional Status Question Answer Note LastModified by Organizat ion Details LastModified Time Do you have difficulty walking or climbing stairs? No MIGRATION.[id number] 26 Information not available 05/18/2022 Are you able to walk? YESWOREST MIGRATION.[id number] 26 Information not available 05/18/2022 Do you have difficulty doing errands alone? No MIGRATION.[id number] 26 Information not available 05/18/2022 Are you able to care for yourself? Yes MIGRATION.[id number] 26 Information not available 05/18/2022 Do you have difficulty dressing or bathing? No MIGRATION.[id number] 26 Information not available 05/18/2022 What is your exercise level? Occasional MIGRATION.[id number] 26 Information not available 05/18/2022 Mental Status Question Answer Note LastModified by Organizat ion Details LastModified Time Do you have difficulty concentrating, remembering or making decisions? No MIGRATION.[id number] 6 Information not available 05/18/2022 Family History Relationship Description Onset Age of this Age Resolved Age Notes LastModified by Organization Details LastModified Time Unspecified Relation Diabetes mellitus [id number] Not available 05/18/2022 04:45:17 Notes:No prostate or colon c ancer Medical History Condition Response BLINDNESS N RHEUMATIC FEVER N KIDNEY STONES N BLADDER PROBLEMS N MRSA N OTHER # 1 N POLIO N LUNG DISEASE/DISORDER N RADIATION / CHEMOTHERAPY N COPD N Other # 2 N BLOOD DISEASES N SURGERY N EAR OR HEARING PROBLEMS N MUMPS N FEMALE PROBLEMS / INFECTIONS N BOWEL PROBLEMS N DEPRESSION (INCLUDING POST ) N STROKE/TIA N THYROID DISEASE N ULCERS N BENIGN PROSTATIC HYPERPLASIA N MEASLES N CERVICALGIA N TB SKIN TEST N MYOCARDIAL INFARCTION N PARAPELGIA N OBESITY N GERD/NAUSEA N ANEURYSM N URINARY/BLADDER/KIDNEY PROBLEMS N CORONARY ARTERY DISEASE (CAD) N MENIERE'S DISEASE N ADDICTION CONCERNS N ENDOMETRIOSIS N USE OF BLOOD THINNERS N SKIN PROBLEMS N EMPHYSEMA N GASTROINTESTINAL DISORDER N MUSCLE,JOINT OR BONE PROBLEMS N GASTROINTESTINAL BLEEDING N BLOOD CLOTS N ASTHMA N CATARACTS N ERECTILE DYSFUNCTION N GI PROBLEMS N CHF N Low Testosterone N NEUROPATHY N INFERTILITY N AIDS/HIV N FRACTURES N CHEMOTHERAPY / RADIATION N VISION/EYE PROBLEMS N LIVER DISEASE N MALE HYPOGONADISM N HYPERTENSION Y TOURETTE'S N ANXIETY DISORDER N BLOOD TRANSFUSION N ANEMIA/BLOOD DISORDER N CHRONIC EAR INFECTIONS N BRONCHITIS N TUBERCULOSIS N GLAUCOMA N FOOT PROBLEM N DIVERTICULITIS N SLEEP APNEA N CHICKENPOX N ALLERGIES/HAYFEVER N INFECTIOUS DISEASE N PROSTATE N HEART ARRHYTHMIA N INSOMNIA N HIGH CHOLESTEROL / HYPERLIPIDEMIA Y EYE PROBLEMS N HYPERTHYROIDISM N EATING DISORDER N EDEMA N CHRONIC PAIN SYNDROME N CONSTIPATION N CAROTID BLOCKAGE N BACK / NECK PROBLEMS N HAVE YOU BEEN HOSPITALIZED OR SEEN IN [facility] IN THE PAST YEAR ? N ATHEROSCLEROSIS N BREAST PROBLEMS N DIALYSIS N ECZEMA N FIBROMYALGIA N OSTEOPOROSIS N ARTHRITIS Y NO SIGNIFICANT PAST MEDICAL HISTORY N APPENDICITIS N DIABETES, TYPE Y BAD TEETH N HEARTBURN / REFLUX N ADD/ADHD N AUTISM SPECTRUM DISORDER (ASD) N HEPATITIS / LIVER DISEASE N PULMONARY DISEASE N GOUT N SLEEP DISORDER N ALZHEIMER'S DISEASE N PAIN N DEMENTIA N HERPES N SEIZURES/EPILEPSY N HEADACHES/MIGRAINES N VASCULAR DISEASE N PACEMAKER N DIZZINESS N HEART DISEASE/HEART PROBLEMS N KIDNEY DISEASE N SCARLET FEVER N MULTIPLE SCLEROSIS N DEVELOPMENTAL OR BEHAVIORAL DISORDERS N MENTAL DISORDER/ILLNESS N CANCER: SPECIFY N CARDIAC ARRHYTHMIA N PNEUMONIA N ATRIAL FIBRILLATION N Gall Stones N PULMONARY EMBOLISM N AUTOIMMUNE DISEASE N Immunizations Vaccine Type Date Status Note Provider Nam e and Address Organization Details Recorded Time Influenza, high-dose, quadrivalent, PF 3 completed Willian Wagner MD [address] [place] [address] [address], [place], [address], [facility] 12/15/2022 21:25:50 Influenza, high-dose, quadrivalent, PF 2 completed Not Available [facility] 05/18/2022 05:04:19 Influenza, high-dose, quadrivalent, PF 0 completed Not Available [facility] 05/18/2022 05:04:19 pneumococcal polysaccharide PPV23 0 completed Not Available [facility] 05/18/2022 05:04:19 Influenza, high-dose, trivalent, PF 9 completed Not Available [facility] 05/18/2022 05:04:19 Influenza, high-dose, trivalent, PF 7 completed Not Available [facility] 05/18/2022 05:04:19 Influenza, high-dose, trivalent, PF 6 completed Not Available [facility] 05/18/2022 05:04:20 Pneumococcal conjugate PCV 13 6 completed Not Available [facility] 05/18/2022 05:04:20 Influenza, split virus, quadrivalent, PF 5 completed Not Available [facility] 05/18/2022 05:04:20 Past Encounters Encounter ID Performer Location Encounter Start Date Encounter Closed Date Diagnosis/Indication Diagnosis SNOMED-CT Code Diagnosis ICD10 Code Diagnosis Note [id number] [facility] Primary Care [facility] [address] [facility] [address] [place] [address] 08/20/2020 00:00:00 08/20/2020 15:16:07 [id number] [facility] [place] [address] [facility] [address] [place] [address] 09/16/2020 00:00:00 09/16/2020 10:44:30 [id number] [facility] [place] [address] [place] [address] 09/23/2020 00:00:00 09/23/2020 13:04:28 [id number] [facility] [place] [address] [place] [address] 10/21/2020 00:00:00 10/21/2020 12:39:39 [id number] [facility] [place] [address] [place] [address] [address] [place] [address] 10/28/2020 00:00:00 10/28/2020 08:58:03 [id number] [facility] [place] [address] [place] [address] 11/12/2020 00:00:00 11/12/2020 11:21:14 [id number] [facility] [place] [address] [place] [address] 12/10/2020 00:00:00 12/10/2020 11:10:16 [id number] [facility] [place] [address] [place] [address] 01/07/2021 00:00:00 01/07/2021 10:55:17 [id number] [facility] [place] [address] [place] [address] [address] [place] [address] 03/29/2021 00:00:00 03/29/2021 12:43:34 [id number] [facility] [place] [address] [facility] 140 [place] [address] 05/11/2021 00:00:00 05/17/2021 08:06:56 [id number] [facility] [place] [address] [facility] [address] [place] [address] 11/02/2021 00:00:00 11/02/2021 20:12:36 [id number] [facility] Primary Care [address] [address] 03/08/2022 00:00:00 03/18/2022 10:12:27 [id number] Willian Wagner MD [facility] Primary Care [address] [address] 06/07/2022 15:25:13 06/07/2022 16:03:45 Eczema 24179136 L30.9 discussed care of dry, sensitive skinshorte r, cooler showersavo id lotions/so aps/produc ts with perfumes/d yesemollie nt lotions regularly Diabetes mellitus 631067 09 E11.9 uncertain controlche ck labs Essential hypertension 00557387 I10 stablecont inue lisinopril 20 mg and hctz 25 mg once daily Hyperlipidemia 11911931 E78.5 [id number] Willian Wagner MD [facility] Primary Care [address] [address] 09/07/2022 15:49:02 09/07/2022 17:21:43 Diabetes mellitus 32010737 E11.9 uncertain controlche ck labs Essential hypertension 27029663 I10 stablecont inue lisinopril 20 mg and hctz 25 mg once daily Hyperlipidemia 90454733 E78.5 [id number] Willian Wagner MD [facility] Primary Care [address] [address] 12/15/2022 12:17:26 12/15/2022 13:14:01 Chest pain 36450723 R07.9 EKG normal, likely GERD Administra tion of influenza vaccine 35481149 Z23 Gastroesop hageal reflux disease without esophagitis 654270209 K21.9 Avoid greasy/spi cy/acidic foodEat small, frequent mealsCall if any worsening symptoms including increased pain or blood in stools or if symptoms do not resolve in 14 dayspantop razole 40 mg dailyf/u in 4 weeks or sooner if needed [id number] Willian Wagner MD [facility] Primary Care [facility] [address] [facility] 140 [place] [address] 01/12/2023 12:08:29 01/12/2023 12:34:45 Dysfunction of bilateral eustachian tubes [id number] 254341 H69.93 Diabetes mellitus 143731 09 E11.9 uncertain controlche ck labs Essential hypertension 63601866 I10 stablecont inue lisinopril 20 mg and hctz 25 mg once daily Hyperlipidemia 61294198 E78.5 Gastroesop hageal reflux disease without esophagitis 014842783 K21.9 Avoid greasy/spi cy/acidic foodEat small, frequent mealsCall if any worsening symptoms including increased pain or blood in stools or if symptoms do not resolve in 14 dayspantop razole 40 mg dailyf/u in 4 weeks or sooner if needed update 01/12/23: improved, f/u prn [id number] MIKE Lazaro [facility] Primary Care [address] [place] [address] 07/21/2023 16:44:35 07/21/2023 17:34:20 Adult health examination 108008701 Z00.00 Screening for disorder 352362530 Z13.9 Hyperlipid emia screening 557621623 Z13.220 Screening for cardiovascular system disease 399313868 Z13.6 Thyroid di sorder screening 201699303 Z13.29 Screening for malignant neoplasm of prostate 824389464 Z12.5 Renewal of prescription 259535691 Z76.0 Diabetes m ellitus screening 388638674 Z13.1 [id number] MIKE Lazaro [facility] Primary Care [address] [place] [address] 08/25/2023 13:55:33 08/25/2023 14:19:02 Cough 60034995 R05.9 -cough noted when eating, talking, sitting next to AC-started approx 2 months ago-non productive -occ minor chest pains-pred nisone given-xr ordered Health Concerns Section Related Observation LastModified by Organization Detai ls LastModified Time None Recorded Concern Status LastModified by Organization Details LastModified Time None Recorded Advance Directives Directive None Recorded Payers Encounter Date Sequence Insurance Name Policy Number Policy Munoz Covered Member ID Munoz Member ID Guarantor Name 09/07/2022 1 [facility] [facility] (MEDICARE REPLACEMENT/A DVANTAGE - HMO) [id number] Damien Ruff [id number] Damien Speedy 12/15/2022 1 [facility] (MEDICARE REPLACEMENT/A DVANTAGE - HMO) [id number] Damien Ruff [id number] Daimen Yunandez 01/12/2023 1 [employer] [facility] (MEDICARE REPLACEMENT/A DVANTAGE - HMO) [id number] Damien Ruff [id number] Damien Yunandez 07/21/2023 1 [employer] [facility] (MEDICARE REPLACEMENT/A DVANTAGE - HMO) [id number] Damien Ruff [id number] Damien Speedy 08/25/2023 1 [facility] (MEDICARE REPLACEMENT/A DVANTAGE - HMO) [id number] Damien Ruff [id number] Damien Speedy Notes Date Note Type Note Provider Name and Address Organization Details Recorded Time 09/07/2022 text/html cut out soda and bread, eating more chicken/vegetables , down 2 pound Willian Wagner MD [address], [facility] [address], [place], [address], [employer] 09/16/2022 12:05:11 12/15/2022 text/html Here c/o pain in chest on left side when he eats greasy food. Happens when he leaves work and takes his pills at night as well, but not as bad as when he eats. No n/v, lasts a few minutes. No sob. Has been going on for about a year or more. Was prescribed pantoprazole but did not take it. No dysphagia. Willian Wagner MD [address], [facility] [address], [place], [address], [employer] 12/15/2022 21:26:42 01/12/2023 text/html Here c/o pain in chest on left side when he eats greasy food. Happens when he leaves work and takes his pills at night as well, but not as bad as when he eats. No n/v, lasts a few minutes. No sob. Has been going on for about a year or more. Was prescribed pantoprazole but did not take it. No dysphagia. update 01/12/23: Chest/abd pain is improved. Right ear muffled Willian Wagner MD [address], [address], [place], [address], [employer] [facility] [employer] 01/16/2023 15:01:43 07/21/2023 text/html Pt is here for annual visit MIKE Lazaro [address], [address], [place], [address], [employer] 07/25/2023 08:10:43 08/25/2023 text/html pt is here for cough MIKE Lazaro [address], [address], [place], [address], [employer] 08/25/2023 14:12:41
[2024-06-11] MEDS: LACTATED RINGERS 1,000 ML 999 ML IV CONT (15:51)
--- OUTSIDE RECORDS SUMMARY | 2024-06-11 15:57 | XMS_ITS | Clinical Summary ---
Author Organization [facility] Address [facility] [place] [address] Care Team Providers Care Inspector [employer] Name Role Phone Natalie Chacko PA-C Primary Care Provider Medications empagliflozin (JARDIANCE) 25 MG tablet Take [...] mouth daily. 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
--- OUTSIDE RECORDS SUMMARY | 2024-06-11 15:57 | XMS_ITS | Encounter Summary ---
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 Gender Identity Not on file Sexual Orientation [...] Result * TSH (OUTSIDE LAB) (01/29/2024) Pathologist [facility] TSH 2.490 01/29/2024 Default History Genericprovider LAB-OUTSIDE/ABST RACTED Final Result * LIPID PANEL (11/06/2023) [facility] CHOLESTEROL 174 HDL 39 TRIGLYCERIDES 187 LDL (CALCULATED) 102 11/06/2023 Default History Genericprovider LABORATORY Final Result * HEMOGLOBIN, GLYCOSYLATED (11/06/2023) Pathologist [facility] HGB A1C 9.1 % 11/06/2023 Default History Genericprovider LABORATORY Final Result * COMPREHENSIVE METABOLIC PANEL (11/06/2023) [facility] SODIUM S/P/B 138 POTASSIUM S/P/B 3.8 CO2 [...] on filedocumented in this encounter Care Teams Cfa Relationship Specialty Start Date End Date Natalie Chacko PA-C [address] [place] [phone] PCP - General NURSE PRACTITIONER 03/08/24 documented as of this encounter
[2024-06-11] MEDS: MECLIZINE HCL 25 MG TABLET PO (17:51)
[2024-06-11] MEDS: diazePAM INJ (*CRX) 10 MG/2 ML SYRINGE 2.5 MG IV PUSH (18:28)
[2024-06-11] MEDS: PROMETHAZINE HCL 25 MG/ML AMPUL 12.5 MG IV PUSH (20:59)
[2024-06-11] MEDS: SODIUM CHLORIDE 0.9% IV 50 ML 999 ML (20:59)
== END 2024-06-11 22:30 | disposition home or self-care (01) ==
PROVIDERS: Registered Nurse; Emergency Provider Student in an Organized Health Care Education/Training Program; PCP Physician Assistant
DX: R42 Dizziness and giddiness (principal); E11.65 Type 2 diabetes mellitus with hyperglycemia; I10 Essential (primary) hypertension; Z87.891 Personal history of nicotine dependence; R00.0 Tachycardia, unspecified; E04.1 Nontoxic single thyroid nodule; R94.31 Abnormal electrocardiogram [ECG] [EKG]
CPT/HCPCS: 36415; 70450; 70496; 70498; 80053; 82010; 84484; 85025; 85610; 85730; 93005; 96361; 96374; 96375; 99284; A9270; J2550; J3360; J7120; Q9967